=== PATIENT | female | born 1985 | race Caucasian/White ===

== ENCOUNTER → 2020-04-03 | Outpatient (CLI) | payer BC ==
[2020-04-03 09:42] LABS: Anisocytosis Slight; Basophils % (A) 0 %; Eosinophils # (A) 0.2 k/uL (0-0.7); Eosinophils % (A) 2 %; HCT 42.9 % (34.0-46.0); HGB 13.6 gm/dL (11.4-16.0); Lymphocytes # (A) 1.7 k/uL (1.0-4.8); Lymphocytes % (A) 17 %; MCH 30.1 pg (25.0-35.0); MCHC 31.6 g/dL (31.0-37.0); MCV 95.3 fL (80.0-100.0); Mean Platelet Volume 8.9; Monocytes # (A) 0.6 k/uL (0-1.0); Monocytes % (A) 6 %; Neutrophils # (A) 7.6 k/uL (1.3-7.7); Neutrophils % (A) 74 %; Platelet Count 338 k/uL (150-450); RBC 4.51 m/uL (3.80-5.40); RDW 16.3 % (11.5-15.5); WBC 10.2 k/uL (3.8-10.6)
[2020-04-03 15:18] LABS: % Iron Saturation 10.18 (12.00-45.00); Albumin 4.6 g/dL (3.80-4.90); Albumin/Globulin Ratio 1.84 (1.60-3.17); Anion Gap 3.8 mmol/L (4.00-12.00); BUN/Creat Ratio 14.29 Ratio (12.00-20.00); Calcium 9.5 mg/dL (8.7-10.3); Carbon Dioxide 30.2 mmol/L (21.6-31.8); Chol/HDL Ratio 4.58; Globulin 2.5 g/dL (1.6-3.3); LDL Cholesterol,Calculated 122.4 mg/dL (0.0-131.0); Magnesium 2.1 mg/dL (1.5-2.4); Total Bilirubin 0.4 mg/dL (0.3-1.2); Total Protein 7.1 g/dL (6.2-8.2); VLDL Calculation 20.6 mg/dL (5.00-40.00)
[2020-04-03 15:27] LABS: T4, Free (Free Thyroxine) 1.2 ng/dL (0.80-1.80)
[2020-04-03 15:29] LABS: Folate, Serum 6.5 ng/mL
[2020-04-03 16:57] LABS: Hemoglobin A1C 5.5 % (4.0-6.0)
== END | disposition home or self-care (01) ==
LOC: LABWHC1 08:22
PROVIDERS: ATTEND Nurse Practitioner Psychiatric/Mental Health
DX: F23 Brief psychotic disorder (principal); Z79.899 Other long term (current) drug therapy
CPT/HCPCS: 36415; 80053; 80061; 82306; 82607; 82746; 83036; 83540; 83550; 83735; 84439; 84443; 85025

== ENCOUNTER 2020-07-04 13:55 | Inpatient (IN) | payer OTHER ==
[2020-07-04] MEDS ORDERED: SODIUM CHLORIDE 0.9% 1,000 ML IV STA (14:19)
[2020-07-04] MEDS ORDERED: ONDANSETRON 4 MG/2 ML VIAL IVP STA (14:19)
[2020-07-04] MEDS ORDERED: METOCLOPRAMIDE 5 MG/ML 2 ML VIAL IVP STA (14:21)
--- NOTE | 2020-07-04 14:30 | ED ---
General Adult HPI - General Chief complaint: Nausea/Vomiting/Diarrhea Stated complaint: Vomiting Time Seen by Provider: 07/04/20 14:05 Source: patient, RN notes reviewed, old records reviewed Mode of arrival: ambulatory Limitations: no limitations - History of Present Illness Initial comments: 34-year-old female patient received a chief complaint of nausea vomiting mild cough starting last night. Patient reports that she essentially threw up throughout the night. Denies a chance of being . patient states she is having some very mild epigastric abdominal pain. Denies any other complaints. Systemic: Pt denies fatigue, rash. Pt denies weakness, night sweats, weight loss. Neuro: Pt denies headache, visual disturbances, syncope or pre-syncope. HEENT: Pt denies ocular discharge or irritation, otalgia, rhinorrhea, pharyngitis or notable lymphadenopathy. Cardiopulmonary: Pt denies chest pain, SOB, heart palpitations, dyspnea on exertion. : Pt denies dysuria, burning w/ urination, frequency/urgency. Denies new onset urinary or bowel incontinence. MSK: Pt denies myalgia, loss of strength or function in extremities. Neuro: Pt denies new onset weakness, paresthesias. - Related Data Home Medications Medication Instructions Recorded Confirmed Sertraline HCl [Zoloft] 100 mg PO DAILY 07/04/20 07/04/20 Allergies Allergy/AdvReac Type Severity Reaction Status Date / Time No Known Allergies Allergy Verified 07/04/20 17:31 Review of Systems ROS Statement: Those systems with pertinent positive or pertinent negative responses have been documented in the HPI. ROS Other: All systems not noted in ROS Statement are negative. Past Medical History Past Medical History: No Reported History History of Any Multi-Drug Resistant Organisms: None Reported Additional Past Surgical History / Comment(s): right foot Past Psychological History: Depression Smoking Status: Current every day smoker Past Alcohol Use History: None Reported Past Drug Use History: None Reported General Exam - General Exam Comments Initial Comments: Constitutional: NAD, AOX3, Pt has pleasant affect. HEENT: NC/AT, trachea midline, neck supple, no lymphadenopathy. Posterior pharynx non erythematous, without exudates. External ears appear normal, without discharge. Mucous membranes moist. Eyes PERRLA, EOM intact. There is no scleral icterus. No pallor noted. Cardiopulmonary: RRR, no murmurs, rubs or gallops, no JVD noted. Lungs CTAB in anterior and posterior nelson. No peripheral edema. Abdominal exam: Abdomen soft and non-distended. Abdomen mildly tender to palpation in epigastric region. Bowel sounds active in LLQ. No hepatosplenomegaly. No ecchymosis Neuro: CN II-XII grossly intact. No nuchal rigidity. No raccon eyes, no mcmillan sign, no hemotympanum. No cervical spinal tenderness. MSK: No posterior calf tenderness bilaterally, homans sign negative bilaterally. Posterior tibialis and radial pulse +2 bilaterally. Sensation intact in upper and lower extremities. Full active ROM in upper and lower extremities, 5/5 stregnth. Limitations: no limitations Course Vital Signs 07/04/20 07/04/20 14:01 17:22 Temperature 97.9 F 98.8 F Pulse Rate 105 H 90 Respiratory 20 16 Rate Blood Pressure 128/84 113/68 O2 Sat by Pulse 99 98 Oximetry Medical Decision Making - Medical Decision Making 34-year-old male female patient presents to ED for evaluation of nausea vomiting diarrhea abdominal pain and mild cough for the last 2 days or so. Patient does report that she ate some [place] 2 days ago however nobody else is sick and ate the same food. Patient has mild abdominal tenderness in the epigastric region. Laboratory investigations were performed which displayed acute kidney injury creatinine of 3, significant transaminitis in the 7000's. Patient denies any toxic ingestions. PT/INR was also found be elevated. Creatinine kinase with acceptable limits., Levels negative. CT abdomen and pelvis negative for acute process. Chest negative for acute process. Influenza negative. Pelvic test pending. Patient be admitted for further evaluation. Case was discussed with Dr. Jarrett who evaluated patient, admitted to Dr. Key. I did discuss case with GI doctor Austin who did reccomend cmv, ebv, hepatitis panel but no further interventions. - Lab Data Result diagrams: 07/04/20 14:19 07/04/20 14:19 Lab Results 07/04/20 07/04/20 07/04/20 Range/Units 14:19 14:19 14:19 WBC 18.8 H (3.8-10.6) k/uL RBC 4.73 (3.80-5.40) m/uL Hgb 13.8 (11.4-16.0) gm/dL Hct 43.5 (34.0-46.0) % MCV 92.1 (80.0-100.0) fL MCH 29.2 (25.0-35.0) pg MCHC 31.7 (31.0-37.0) g/dL RDW 15.6 H (11.5-15.5) % Plt Count 262 (150-450) k/uL Neutrophils % 91 % Lymphocytes % 6 % Monocytes % 2 % Eosinophils % 1 % Basophils % 0 % Neutrophils # 17.0 H (1.3-7.7) k/uL Lymphocytes # 1.2 (1.0-4.8) k/uL Monocytes # 0.3 (0-1.0) k/uL Eosinophils # 0.2 (0-0.7) k/uL Basophils # 0.0 (0-0.2) k/uL PT (9.0-12.0) sec INR (<1.2) APTT (22.0-30.0) sec Sodium 136 L (137-145) mmol/L Potassium 3.6 (3.5-5.1) mmol/L Chloride 104 (98-107) mmol/L Carbon Dioxide 20 L (22-30) mmol/L Anion Gap 12 mmol/L BUN 19 H (7-17) mg/dL Creatinine 3.28 H (0.52-1.04) mg/dL Est GFR (CKD-EPI)AfAm 20 (>60 ml/min/1.73 sqM) Est GFR (CKD-EPI)NonAf 18 (>60 ml/min/1.73 sqM) Glucose 128 H (74-99) mg/dL Osmolality (280-301) mosm/kg Lactic Ac Sepsis Rflx Plasma Lactic Acid Sukhjinder (0.7-2.0) mmol/L Calcium 8.6 (8.4-10.2) mg/dL Total Bilirubin 0.9 (0.2-1.3) mg/dL AST 7283 H (14-36) U/L ALT 7622 H (4-34) U/L Alkaline Phosphatase 140 H (38-126) U/L Creatine Kinase 107 (30-135) U/L Total Protein 6.4 (6.3-8.2) g/dL Albumin 3.6 (3.5-5.0) g/dL Lipase 228 (23-300) U/L Urine Color Urine Appearance (Clear) Urine pH (5.0-8.0) Ur Specific [place] (1.001-1.035) Urine Protein (Negative) Urine Glucose (UA) (Negative) Urine Ketones (Negative) Urine Blood (Negative) Urine Nitrite (Negative) Urine Bilirubin (Negative) Urine Urobilinogen (<2.0) mg/dL Ur Leukocyte Esterase (Negative) Urine RBC (0-5) /hpf Urine WBC (0-5) /hpf Ur Squamous Epith Cells (0-4) /hpf Amorphous Sediment (None) /hpf Urine Bacteria (None) /hpf Urine Mucus (None) /hpf Urine HCG, Qual (Not Detectd) Stool Occult Blood (Negative) Urine Opiates Screen (NotDetected) Ur Oxycodone Screen (NotDetected) Urine Methadone Screen (NotDetected) Ur Propoxyphene Screen (NotDetected) Acetaminophen ug/mL Ur Barbiturates Screen (NotDetected) U Tricyclic Antidepress (NotDetected) Ur Phencyclidine Scrn (NotDetected) Ur Amphetamines Screen (NotDetected) U Methamphetamines Scrn (NotDetected) U Benzodiazepines Scrn (NotDetected) Urine Cocaine Screen (NotDetected) U Marijuana (THC) Screen (NotDetected) Influenza Type A RNA (Not Detectd) Influenza Type B (PCR) (Not Detectd) 07/04/20 07/04/20 07/04/20 Range/Units 14:19 14:19 14:20 WBC (3.8-10.6) k/uL RBC (3.80-5.40) m/uL Hgb (11.4-16.0) gm/dL Hct (34.0-46.0) % MCV (80.0-100.0) fL MCH (25.0-35.0) pg MCHC (31.0-37.0) g/dL RDW (11.5-15.5) % Plt Count (150-450) k/uL Neutrophils % % Lymphocytes % % Monocytes % % Eosinophils % % Basophils % % Neutrophils # (1.3-7.7) k/uL Lymphocytes # (1.0-4.8) k/uL Monocytes # (0-1.0) k/uL Eosinophils # (0-0.7) k/uL Basophils # (0-0.2) k/uL PT (9.0-12.0) sec INR (<1.2) APTT (22.0-30.0) sec Sodium (137-145) mmol/L Potassium (3.5-5.1) mmol/L Chloride (98-107) mmol/L Carbon Dioxide (22-30) mmol/L Anion Gap mmol/L BUN (7-17) mg/dL Creatinine (0.52-1.04) mg/dL Est GFR (CKD-EPI)AfAm (>60 ml/min/1.73 sqM) Est GFR (CKD-EPI)NonAf (>60 ml/min/1.73 sqM) Glucose (74-99) mg/dL Osmolality 290 (280-301) mosm/kg Lactic Ac Sepsis Rflx Plasma Lactic Acid Sukhjinder (0.7-2.0) mmol/L Calcium (8.4-10.2) mg/dL Total Bilirubin (0.2-1.3) mg/dL AST (14-36) U/L ALT (4-34) U/L Alkaline Phosphatase (38-126) U/L Creatine Kinase (30-135) U/L Total Protein (6.3-8.2) g/dL Albumin (3.5-5.0) g/dL Lipase (23-300) U/L Urine Color Dark Brown Urine Appearance Turbid H (Clear) Urine pH 5.5 (5.0-8.0) Ur Specific [place] 1.023 (1.001-1.035) Urine Protein 2+ H (Negative) Urine Glucose (UA) Trace H (Negative) Urine Ketones Negative (Negative) Urine Blood Small H (Negative) Urine Nitrite Negative (Negative) Urine Bilirubin Negative (Negative) Urine Urobilinogen <2.0 (<2.0) mg/dL Ur Leukocyte Esterase Negative (Negative) Urine RBC 2 (0-5) /hpf Urine WBC 10 H (0-5) /hpf Ur Squamous Epith Cells 2 (0-4) /hpf Amorphous Sediment Rare H (None) /hpf Urine Bacteria Rare H (None) /hpf Urine Mucus Rare H (None) /hpf Urine HCG, Qual (Not Detectd) Stool Occult Blood (Negative) Urine Opiates Screen (NotDetected) Ur Oxycodone Screen (NotDetected) Urine Methadone Screen (NotDetected) Ur Propoxyphene Screen (NotDetected) Acetaminophen <10.0 ug/mL Ur Barbiturates Screen (NotDetected) U Tricyclic Antidepress (NotDetected) Ur Phencyclidine Scrn (NotDetected) Ur Amphetamines Screen (NotDetected) U Methamphetamines Scrn (NotDetected) U Benzodiazepines Scrn (NotDetected) Urine Cocaine Screen (NotDetected) U Marijuana (THC) Screen (NotDetected) Influenza Type A RNA (Not Detectd) Influenza Type B (PCR) (Not Detectd) 07/04/20 07/04/20 07/04/20 Range/Units 14:20 14:20 14:37 WBC (3.8-10.6) k/uL RBC (3.80-5.40) m/uL Hgb (11.4-16.0) gm/dL Hct (34.0-46.0) % MCV (80.0-100.0) fL MCH (25.0-35.0) pg MCHC (31.0-37.0) g/dL RDW (11.5-15.5) % Plt Count (150-450) k/uL Neutrophils % % Lymphocytes % % Monocytes % % Eosinophils % % Basophils % % Neutrophils # (1.3-7.7) k/uL Lymphocytes # (1.0-4.8) k/uL Monocytes # (0-1.0) k/uL Eosinophils # (0-0.7) k/uL Basophils # (0-0.2) k/uL PT (9.0-12.0) sec INR (<1.2) APTT (22.0-30.0) sec Sodium (137-145) mmol/L Potassium (3.5-5.1) mmol/L Chloride (98-107) mmol/L Carbon Dioxide (22-30) mmol/L Anion Gap mmol/L BUN (7-17) mg/dL Creatinine (0.52-1.04) mg/dL Est GFR (CKD-EPI)AfAm (>60 ml/min/1.73 sqM) Est GFR (CKD-EPI)NonAf (>60 ml/min/1.73 sqM) Glucose (74-99) mg/dL Osmolality (280-301) mosm/kg Lactic Ac Sepsis Rflx Plasma Lactic Acid Sukhjinder 4.5 H* (0.7-2.0) mmol/L Calcium (8.4-10.2) mg/dL Total Bilirubin (0.2-1.3) mg/dL AST (14-36) U/L ALT (4-34) U/L Alkaline Phosphatase (38-126) U/L Creatine Kinase (30-135) U/L Total Protein (6.3-8.2) g/dL Albumin (3.5-5.0) g/dL Lipase (23-300) U/L Urine Color Urine Appearance (Clear) Urine pH (5.0-8.0) Ur Specific [place] (1.001-1.035) Urine Protein (Negative) Urine Glucose (UA) (Negative) Urine Ketones (Negative) Urine Blood (Negative) Urine Nitrite (Negative) Urine Bilirubin (Negative) Urine Urobilinogen (<2.0) mg/dL Ur Leukocyte Esterase (Negative) Urine RBC (0-5) /hpf Urine WBC (0-5) /hpf Ur Squamous Epith Cells (0-4) /hpf Amorphous Sediment (None) /hpf Urine Bacteria (None) /hpf Urine Mucus (None) /hpf Urine HCG, Qual Not Detected (Not Detectd) Stool Occult Blood (Negative) Urine Opiates Screen Not Detected (NotDetected) Ur Oxycodone Screen Not Detected (NotDetected) Urine Methadone Screen Not Detected (NotDetected) Ur Propoxyphene Screen Not Detected (NotDetected) Acetaminophen ug/mL Ur Barbiturates Screen Not Detected (NotDetected) U Tricyclic Antidepress Not Detected (NotDetected) Ur Phencyclidine Scrn Not Detected (NotDetected) Ur Amphetamines Screen Not Detected (NotDetected) U Methamphetamines Scrn Not Detected (NotDetected) U Benzodiazepines Scrn Not Detected (NotDetected) Urine Cocaine Screen Not Detected (NotDetected) U Marijuana (THC) Screen Not Detected (NotDetected) Influenza Type A RNA (Not Detectd) Influenza Type B (PCR) (Not Detectd) 10/03/20 10/03/20 10/03/20 Range/Units 15:13 16:29 16:30 WBC (3.8-10.6) k/uL RBC (3.80-5.40) m/uL Hgb (11.4-16.0) gm/dL Hct (34.0-46.0) % MCV (80.0-100.0) fL MCH (25.0-35.0) pg MCHC (31.0-37.0) g/dL RDW (11.5-15.5) % Plt Count (150-450) k/uL Neutrophils % % Lymphocytes % % Monocytes % % Eosinophils % % Basophils % % Neutrophils # (1.3-7.7) k/uL Lymphocytes # (1.0-4.8) k/uL Monocytes # (0-1.0) k/uL Eosinophils # (0-0.7) k/uL Basophils # (0-0.2) k/uL PT 13.8 H (9.0-12.0) sec INR 1.4 H (<1.2) APTT 21.1 L (22.0-30.0) sec Sodium (137-145) mmol/L Potassium (3.5-5.1) mmol/L Chloride (98-107) mmol/L Carbon Dioxide (22-30) mmol/L Anion Gap mmol/L BUN (7-17) mg/dL Creatinine (0.52-1.04) mg/dL Est GFR (CKD-EPI)AfAm (>60 ml/min/1.73 sqM) Est GFR (CKD-EPI)NonAf (>60 ml/min/1.73 sqM) Glucose (74-99) mg/dL Osmolality (280-301) mosm/kg Lactic Ac Sepsis Rflx Y Plasma Lactic Acid Sukhjinder (0.7-2.0) mmol/L Calcium (8.4-10.2) mg/dL Total Bilirubin (0.2-1.3) mg/dL AST (14-36) U/L ALT (4-34) U/L Alkaline Phosphatase (38-126) U/L Creatine Kinase (30-135) U/L Total Protein (6.3-8.2) g/dL Albumin (3.5-5.0) g/dL Lipase (23-300) U/L Urine Color Urine Appearance (Clear) Urine pH (5.0-8.0) Ur Specific [place] (1.001-1.035) Urine Protein (Negative) Urine Glucose (UA) (Negative) Urine Ketones (Negative) Urine Blood (Negative) Urine Nitrite (Negative) Urine Bilirubin (Negative) Urine Urobilinogen (<2.0) mg/dL Ur Leukocyte Esterase (Negative) Urine RBC (0-5) /hpf Urine WBC (0-5) /hpf Ur Squamous Epith Cells (0-4) /hpf Amorphous Sediment (None) /hpf Urine Bacteria (None) /hpf Urine Mucus (None) /hpf Urine HCG, Qual (Not Detectd) Stool Occult Blood Negative (Negative) Urine Opiates Screen (NotDetected) Ur Oxycodone Screen (NotDetected) Urine Methadone Screen (NotDetected) Ur Propoxyphene Screen (NotDetected) Acetaminophen ug/mL Ur Barbiturates Screen (NotDetected) U Tricyclic Antidepress (NotDetected) Ur Phencyclidine Scrn (NotDetected) Ur Amphetamines Screen (NotDetected) U Methamphetamines Scrn (NotDetected) U Benzodiazepines Scrn (NotDetected) Urine Cocaine Screen (NotDetected) U Marijuana (THC) Screen (NotDetected) Influenza Type A RNA (Not Detectd) Influenza Type B (PCR) (Not Detectd) 07/04/20 Range/Units 16:31 WBC (3.8-10.6) k/uL RBC (3.80-5.40) m/uL Hgb (11.4-16.0) gm/dL Hct (34.0-46.0) % MCV (80.0-100.0) fL MCH (25.0-35.0) pg MCHC (31.0-37.0) g/dL RDW (11.5-15.5) % Plt Count (150-450) k/uL Neutrophils % % Lymphocytes % % Monocytes % % Eosinophils % % Basophils % % Neutrophils # (1.3-7.7) k/uL Lymphocytes # (1.0-4.8) k/uL Monocytes # (0-1.0) k/uL Eosinophils # (0-0.7) k/uL Basophils # (0-0.2) k/uL PT (9.0-12.0) sec INR (<1.2) APTT (22.0-30.0) sec Sodium (137-145) mmol/L Potassium (3.5-5.1) mmol/L Chloride (98-107) mmol/L Carbon Dioxide (22-30) mmol/L Anion Gap mmol/L BUN (7-17) mg/dL Creatinine (0.52-1.04) mg/dL Est GFR (CKD-EPI)AfAm (>60 ml/min/1.73 sqM) Est GFR (CKD-EPI)NonAf (>60 ml/min/1.73 sqM) Glucose (74-99) mg/dL Osmolality (280-301) mosm/kg Lactic Ac Sepsis Rflx Plasma Lactic Acid Sukhjinder (0.7-2.0) mmol/L Calcium (8.4-10.2) mg/dL Total Bilirubin (0.2-1.3) mg/dL AST (14-36) U/L ALT (4-34) U/L Alkaline Phosphatase (38-126) U/L Creatine Kinase (30-135) U/L Total Protein (6.3-8.2) g/dL Albumin (3.5-5.0) g/dL Lipase (23-300) U/L Urine Color Urine Appearance (Clear) Urine pH (5.0-8.0) Ur Specific [place] (1.001-1.035) Urine Protein (Negative) Urine Glucose (UA) (Negative) Urine Ketones (Negative) Urine Blood (Negative) Urine Nitrite (Negative) Urine Bilirubin (Negative) Urine Urobilinogen (<2.0) mg/dL Ur Leukocyte Esterase (Negative) Urine RBC (0-5) /hpf Urine WBC (0-5) /hpf Ur Squamous Epith Cells (0-4) /hpf Amorphous Sediment (None) /hpf Urine Bacteria (None) /hpf Urine Mucus (None) /hpf Urine HCG, Qual (Not Detectd) Stool Occult Blood (Negative) Urine Opiates Screen (NotDetected) Ur Oxycodone Screen (NotDetected) Urine Methadone Screen (NotDetected) Ur Propoxyphene Screen (NotDetected) Acetaminophen ug/mL Ur Barbiturates Screen (NotDetected) U Tricyclic Antidepress (NotDetected) Ur Phencyclidine Scrn (NotDetected) Ur Amphetamines Screen (NotDetected) U Methamphetamines Scrn (NotDetected) U Benzodiazepines Scrn (NotDetected) Urine Cocaine Screen (NotDetected) U Marijuana (THC) Screen (NotDetected) Influenza Type A RNA Not Detected (Not Detectd) Influenza Type B (PCR) Not Detected (Not Detectd) Disposition Clinical Impression: Elevated liver enzymes, Acute kidney injury, Nausea and vomiting, Abdominal pain Disposition: ADMITTED IP TO THIS HOSP Condition: Serious Is patient prescribed a controlled substance at d/c from ED?: No
[2020-07-04 14:53] LABS: Basophils % (A) 0 %; Eosinophils # (A) 0.2 k/uL (0-0.7); Eosinophils % (A) 1 %; HCT 43.5 % (34.0-46.0); HGB 13.8 gm/dL (11.4-16.0); Lymphocytes # (A) 1.2 k/uL (1.0-4.8); Lymphocytes % (A) 6 %; MCH 29.2 pg (25.0-35.0); MCHC 31.7 g/dL (31.0-37.0); MCV 92.1 fL (80.0-100.0); Mean Platelet Volume 9.2; Monocytes # (A) 0.3 k/uL (0-1.0); Monocytes % (A) 2 %; Neutrophils % (A) 91 %; Platelet Count 262 k/uL (150-450); RBC 4.73 m/uL (3.80-5.40); RDW 15.6 % (11.5-15.5); WBC 18.8 k/uL (3.8-10.6)
[2020-07-04 15:02] LABS: Albumin 3.6 g/dL (3.5-5.0); Calcium 8.6 mg/dL (8.4-10.2); Potassium 3.6 mmol/L (3.5-5.1); Total Bilirubin 0.9 mg/dL (0.2-1.3); Total Protein 6.4 g/dL (6.3-8.2)
[2020-07-04] MEDS ORDERED: SODIUM CHLORIDE 0.9% 1,000 ML IV ONE (15:16)
[2020-07-04 15:33] LABS: Amorphous Sediment,Urine Rare /hpf; Appearance,Urine Turbid (Clear); Bacteria,Urine Rare /hpf; Bilirubin,Urine Negative (Negative); Blood,Urine Small (Negative); Color,Urine Dark Brown; Glucose,Urine (UA) Trace (Negative); Ketones,Urine Negative (Negative); Leukocyte Esterase,Urine Negative (Negative); Mucus,Urine Rare /hpf; Nitrite,Urine Negative (Negative); PH, Urine 5.5 (5.0-8.0); Protein,Urine 2+ (Negative); RBC,Urine 2 /hpf (0-5); Specific Gravity,Urine 1.023 (1.001-1.035); Squamous Epithelial Cell,Urine 2 /hpf (0-4); Urobilinogen,Urine <2.0 mg/dL (<2.0); WBC,Urine 10 /hpf (0-5)
--- NOTE | 2020-07-04 15:39 | XR ---
EXAMINATION TYPE: XR chest 2V DATE OF EXAM: 07/04/2020 COMPARISON: NONE HISTORY: Abdominal pain TECHNIQUE: 2 views FINDINGS: Heart and mediastinum are normal. Lungs are clear. Diaphragm is normal. Bony thorax appears normal. IMPRESSION: Normal chest
--- NOTE | 2020-07-04 15:48 | CT ---
EXAMINATION TYPE: CT abdomen pelvis wo con DATE OF EXAM: 07/04/2020 COMPARISON: None HISTORY: Abdominal pain, vomiting. CT DLP: 1110.4 mGycm Automated exposure control for dose reduction was used. Images obtained from the diaphragm to the floor the pelvis with no contrast. Lung bases are clear. There is no pleural effusion. Heart size is normal. There is mild fatty infiltration of the liver. Spleen is intact. There is no pancreatic mass. Gallbla dder appears normal. The stomach is intact. There is no evidence of pancreatic mass. Exam limited sli ghtly by motion. There is no adrenal mass. Kidneys have normal size. There is no hydronephrosis. There is no retroperi toneal adenopathy. Ureters are not dilated. Bladder distends smoothly. Uterus is anteverted. There is no inguinal hernia. There is small amount of free fluid in the pelvis. There is no evidence of a pel teagan mass. There is no mesenteric edema. There is no ascites or free air. Appendix is posterior and appears norm al. There is no bowel obstruction. Lumbar vertebra have normal spacing and alignment. Posterior elements are intact. There is no vee veronika fracture. The bony pelvis is intact. Hip joints are intact. IMPRESSION: Small amount of free fluid in the cul-de-sac could be physiologic. Normal appendix.
[2020-07-04] MEDS ORDERED: PIPERACILLIN-TAZOBACTAM 3.375 GM in SODIUM CHLORIDE 0.9% 100 ML IVPB STA (16:36)
[2020-07-04] MEDS ORDERED: ONDANSETRON 4 MG/2 ML VIAL IVP PRN ×2 (16:48→16:55)
[2020-07-04] MEDS ORDERED: NALOXONE 0.4 MG/ML 1 ML VIAL IV PRN (16:48)
[2020-07-04 17:10] LABS: INR 1.4 (<1.2); Prothrombin Time 13.8 sec (9.0-12.0)
[2020-07-04 17:17] LABS: Partial Thromboplastin Time 21.1 sec (22.0-30.0)
[2020-07-04] MEDS: SODIUM CHLORIDE 0.9% 1,000 ML IV SCH (17:39)
[2020-07-04 17:50] LABS: Amphetamine Screen,Urine Not Detected (NotDetected); Barbiturate Screen,Urine Not Detected (NotDetected); Benzodiazepines Screen,Urine Not Detected (NotDetected); Cocaine Screen,Urine Not Detected (NotDetected); Methadone Screen, Urine Not Detected (NotDetected); Opiate Screen,Urine Not Detected (NotDetected); Oxycodone Screen, Urine Not Detected (NotDetected); Phencyclidine Screen,Urine Not Detected (NotDetected); Tricyclic Antidepressant,Urine Not Detected (NotDetected); Urn Cannabinoid Scrn Not Detected (NotDetected)
[2020-07-04 23:10] LABS: Hepatitis A Antibody IgM Non-Reactive (Non-Reactive); Hepatitis B Core IgM Non-Reactive (Non-Reactive); Hepatitis B Surface Antigen Non-Reactive (Non-Reactive); Hepatitis C IgG Antibody Non-Reactive (Non-Reactive)
[2020-07-05] MEDS: SODIUM CHLORIDE 0.9% 1,000 ML IV SCH ×3 (04:53→19:56)
[2020-07-05 06:37] LABS: HCT 33.4 % (34.0-46.0); HGB 11.2 gm/dL (11.4-16.0); MCH 30.6 pg (25.0-35.0); MCHC 33.5 g/dL (31.0-37.0); MCV 91.5 fL (80.0-100.0); Mean Platelet Volume 8.9; Platelet Count 213 k/uL (150-450); RBC 3.65 m/uL (3.80-5.40); RDW 15.6 % (11.5-15.5); WBC 12.5 k/uL (3.8-10.6)
[2020-07-05 06:46] LABS: African American GFR (CKD) 17 (>60 ml/min/1.73 sqM); Albumin 2.7 g/dL (3.5-5.0); Albumin/Globulin Ratio 1.1; Alkaline Phosphatase 117 U/L (38-126); Anion Gap 3 mmol/L; Blood Urea Nitrogen 21 mg/dL (7-17); Calcium 7.7 mg/dL (8.4-10.2); Carbon Dioxide 21 mmol/L (22-30); Chloride 111 mmol/L (98-107); Globulin 2.5 g/dL; Glucose 96 mg/dL (74-99); Non-African American GFR(CKD) 15 (>60 ml/min/1.73 sqM); Potassium 3.1 mmol/L (3.5-5.1); Sodium 135 mmol/L (137-145); Total Bilirubin 0.9 mg/dL (0.2-1.3); Total Protein 5.2 g/dL (6.3-8.2)
[2020-07-05 07:07] LABS: AST 2076 U/L (14-36)
[2020-07-05 07:09] LABS: ALT 4354 U/L (4-34)
[2020-07-05] MEDS ORDERED: POTASSIUM CHLORIDE 20 MEQ in WATER FOR INJECTION 1 100ML.BAG IVPB SCH (09:00)
--- NOTE | 2020-07-05 09:02 | US ---
EXAMINATION TYPE: US renals and bladder DATE OF EXAM: 07/05/2020 COMPARISON: None CLINICAL HISTORY: vomiting. abn labs EXAM MEASUREMENTS: Right Kidney: 11.7 x 6.2 x 5.7 cm Left Kidney: 11.4 x 5.3 x 5.9 cm Right Kidney: No hydronephrosis or masses seen Left Kidney: No hydronephrosis or masses seen Bladder: mildly distended, anechoic Bilateral Jets not seen IMPRESSION: 1. Normal renal ultrasound
--- NOTE | 2020-07-05 09:50 | P.HPIM ---
History of Present Illness H&P Date: 07/05/20 History of present illness This is a 34-year-old patient who presented to the emergency room complaining of nausea vomiting and diarrhea since . Patient states that she threw up throughout the night and had multiple episodes of diarrhea. Patient is having mild epigastric pain. Patient states that she had [place] the night before however nobody else was sick. She denies any recent travel. She has not been around any animals and/or pets. Patient denies any deep cleaning or exposure to any chemicals. She denies any blood in her urine or kidney stones. Patient was seen on by her psychologist for a routine monthly visit to manage her depression. At that time patient was found to be afebrile however she was vomiting and was instructed to see her primary care physician. Patient was [facility] however with continued episodes of vomiting she in turn came to the emergency room. Patient denies any ingestion of Tylenol. patient states that she did take Pepto-Bismol because of abdominal discomfort and vomiting. CT of the abdomen shows a small amount of free fluid in the cul-de-sac. At this time patient is found resting in bed in no acute distress. Patient states that she has not had any episodes of vomiting or diarrhea since she was admitted. Patient continues have slight epigastric pain. Patient denies any petechiae or bruising to mouth or extremities. Patient states that she has not been around anyone who has been sick. Patient states that she has no chance of being . Patient remained afebrile. Pulse rate 72, respirations 16, blood pressure 104/53 pulse ox a 93% on room air. WC 12.5, hemoglobin 11.2, sodium 135, potassium 3.9, B UN 21, creatinine 3.83, INR 1.4, lactate acid 2.0, AST 2076, ALC 4354. Covid testing pending, influenza A and B-, hepatitis screening negative CMV negative. Awaiting Aletha-Rasmussen virus Review Of Systems: Constitutional: No fever, no chills, no night sweats. No weight change. No weakness, fatigue or lethargy. No daytime sleepiness. EENT: No headache. No blurred vision or double vision, no loss of vision. No loss of Hearing, no ringing in the ears, no dizziness. No nasal drainage or congestion. No epistaxis. No sore throat. Lungs: No shortness of breath, cough, no sputum production. No wheezing. Cardiovascular: No chest pain, no lower extremity edema. No palpitations. No paroxysmal nocturnal dyspnea. No orthopnea. No lightheadedness or dizziness. No syncopal episodes. Abdominal: Reports abdominal discomfort. Reports nausea and vomiting. no diarrhea. Report constipation. No bloody or tarry stools. no loss of appetite. Genitourinary: No dysuria, increased frequency, urgency. No urinary retention. Musculoskeletal: No myalgias. No muscle weakness, no gait dysfunction, no frequent falls. No back pain. No neck pain. Integumentary: No wounds, no lesions. No rash or pruritus. No unusual bruising. No change in hair or nails. Neurologic: No aphasia. No facial droop. No change in mentation. No head injury. No headache. No paralysis. No paresthesia. Psychiatric: Reports depression managed. No anxiety. No mood swings. Endocrine: No abnormal blood sugars. No weight change. No excessive sweating or thirst. 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 Does not utilize any Coumadin at home such as CPAP machine Family history: Patient is single with no children. patient has 6 siblings: One sister with unknown cancer, brother with schizophrenia, brother with diabetes, mother and father with diabetes, father history of permanent pacemaker Physical examination General Appearance: Alert, cooperative, no distress, appears stated age. Neck HEENT: Supple, no lymphadenopathy, no thyroid enlargement, no carotid bruits. Lungs: Clear to auscultation without crackles or wheezes no rhonchi, no deformity. Chest Wall: Chest wall normal expansion with deep inspiration no tenderness and no deformity was found on exam, no costochondral pain or discomfort. Heart: Regular rate and rhythm, S1, S2 normal, no murmur, rub or gallop. Back: Symmetric, no curvature, ROM normal, no CVA tenderness. Abdomen: Soft, non-tender, no rebound or rigidity, no hepatosplenomegaly. Extremities: Extremities normal, atraumatic, no cyanosis or edema. Pulses: 2+ and symmetric. Skin: Skin color, texture, tugor normal, no rashes or lesions. Neurologic: Alert oriented x3 cranial nerves II through XII intact, no motor deficit, no abnormal balance or gait Assessment and plan 1. Acute kidney failure etiology unknown possible infectious process of atypical virus such as E. coli, renal tubular necrosis. CT of abdomen and pelvis as noted above, pelvic labs pending, consult gastroenterology and nephrology. Renal ultrasound ordered Stool culture and stool ova ordered. Strict I&O. Repeat PT/INR tomorrow. One dose of Zosyn given. 2. Acute liver injury with elevated liver enzymes. History of Zoloft use for prolonged period unlikely cause of elevated liver enzymes. More likely related to an infectious process. As noted above 3. Diarrhea with nausea vomiting abdominal pain. Continue hydration. May advance diet to full liquid 4. Hypokalemia. Potassium replacement potassium chloride 60 mEq 1 5. Depression. Continue Zoloft unlikely cause of elevated liver enzymes 6. Nicotine dependence 7. GI prophylaxis. Protonix 40 mg IV push 8. DVT prophylaxis. Early ambulation CODE STATUS: Full code Discharge plan: Admit to the hospital for minimum 2 nights day Impression and plan of care have been directed as dictated by the signing physician. Pavithra Dominguez nurse practitioner acting as scribe for signing physician. Past Medical History Past Medical History: No Reported History History of Any Multi-Drug Resistant Organisms: None Reported Additional Past Surgical History / Comment(s): right foot Past Anesthesia/Blood Transfusion Reactions: No Reported Reaction Past Psychological History: Depression Smoking Status: Current every day smoker Past Alcohol Use History: None Reported Past Drug Use History: None Reported Medications and Allergies Home Medications Medication Instructions Recorded Confirmed Type Sertraline HCl [Zoloft] 100 mg PO DAILY 07/04/20 07/04/20 History Allergies Allergy/AdvReac Type Severity Reaction Status Date / Time No Known Allergies Allergy Verified 07/04/20 17:31 Physical Exam Vitals: Vital Signs Temp Pulse Pulse Resp BP BP Pulse Ox 07/05/20 07:56 97.8 F 72 16 104/53 93 L 07/05/20 01:00 98.2 F 90 18 108/67 98 07/04/20 19:00 98.6 F 86 16 119/72 99 07/04/20 18:14 98.8 F 88 18 132/66 98 07/04/20 18:13 88 18 132/66 98 07/04/20 17:22 98.8 F 90 16 113/68 98 07/04/20 14:01 97.9 F 105 H 20 128/84 99 Intake and Output 07/04/20 07/05/20 07/05/20 22:59 06:59 14:59 Other: Voiding Method Toilet Toilet # Voids 1 1 Weight 102.058 kg Results CBC & Chem 7: 07/05/20 06:09 07/05/20 06:09 Labs: Abnormal Lab Results - Last 24 Hours (Table) 07/04/20 07/04/20 07/04/20 Range/Units 14:19 14:19 14:20 WBC 18.8 H (3.8-10.6) k/uL RBC (3.80-5.40) m/uL Hgb (11.4-16.0) gm/dL Hct (34.0-46.0) % RDW 15.6 H (11.5-15.5) % Neutrophils # 17.0 H (1.3-7.7) k/uL PT (9.0-12.0) sec INR (<1.2) APTT (22.0-30.0) sec Sodium 136 L (137-145) mmol/L Potassium (3.5-5.1) mmol/L Chloride (98-107) mmol/L Carbon Dioxide 20 L (22-30) mmol/L BUN 19 H (7-17) mg/dL Creatinine 3.28 H (0.52-1.04) mg/dL Glucose 128 H (74-99) mg/dL Plasma Lactic Acid Sukhjinder (0.7-2.0) mmol/L Calcium (8.4-10.2) mg/dL AST 7283 H (14-36) U/L ALT 7622 H (4-34) U/L Alkaline Phosphatase 140 H (38-126) U/L Total Protein (6.3-8.2) g/dL Albumin (3.5-5.0) g/dL Urine Appearance Turbid H (Clear) Urine Protein 2+ H (Negative) Urine Glucose (UA) Trace H (Negative) Urine Blood Small H (Negative) Urine WBC 10 H (0-5) /hpf Amorphous Sediment Rare H (None) /hpf Urine Bacteria Rare H (None) /hpf Urine Mucus Rare H (None) /hpf 07/04/20 07/04/20 07/05/20 Range/Units 14:37 16:30 06:09 WBC 12.5 H (3.8-10.6) k/uL RBC 3.65 L (3.80-5.40) m/uL Hgb 11.2 L (11.4-16.0) gm/dL Hct 33.4 L (34.0-46.0) % RDW 15.6 H (11.5-15.5) % Neutrophils # (1.3-7.7) k/uL PT 13.8 H (9.0-12.0) sec INR 1.4 H (<1.2) APTT 21.1 L (22.0-30.0) sec Sodium (137-145) mmol/L Potassium (3.5-5.1) mmol/L Chloride (98-107) mmol/L Carbon Dioxide (22-30) mmol/L BUN (7-17) mg/dL Creatinine (0.52-1.04) mg/dL Glucose (74-99) mg/dL Plasma Lactic Acid Sukhjinder 4.5 H* (0.7-2.0) mmol/L Calcium (8.4-10.2) mg/dL AST (14-36) U/L ALT (4-34) U/L Alkaline Phosphatase (38-126) U/L Total Protein (6.3-8.2) g/dL Albumin (3.5-5.0) g/dL Urine Appearance (Clear) Urine Protein (Negative) Urine Glucose (UA) (Negative) Urine Blood (Negative) Urine WBC (0-5) /hpf Amorphous Sediment (None) /hpf Urine Bacteria (None) /hpf Urine Mucus (None) /hpf 07/05/20 Range/Units 06:09 WBC (3.8-10.6) k/uL RBC (3.80-5.40) m/uL Hgb (11.4-16.0) gm/dL Hct (34.0-46.0) % RDW (11.5-15.5) % Neutrophils # (1.3-7.7) k/uL PT (9.0-12.0) sec INR (<1.2) APTT (22.0-30.0) sec Sodium 135 L (137-145) mmol/L Potassium 3.1 L (3.5-5.1) mmol/L Chloride 111 H (98-107) mmol/L Carbon Dioxide 21 L (22-30) mmol/L BUN 21 H (7-17) mg/dL Creatinine 3.83 H (0.52-1.04) mg/dL Glucose (74-99) mg/dL Plasma Lactic Acid Sukhjinder (0.7-2.0) mmol/L Calcium 7.7 L (8.4-10.2) mg/dL AST 2076 H (14-36) U/L ALT 4354 H (4-34) U/L Alkaline Phosphatase (38-126) U/L Total Protein 5.2 L (6.3-8.2) g/dL Albumin 2.7 L (3.5-5.0) g/dL Urine Appearance (Clear) Urine Protein (Negative) Urine Glucose (UA) (Negative) Urine Blood (Negative) Urine WBC (0-5) /hpf Amorphous Sediment (None) /hpf Urine Bacteria (None) /hpf Urine Mucus (None) /hpf Thrombosis Risk Factor Assmnt - Choose All That Apply Each Factor Represents 1 point: Obesity (BMI >25) Thrombosis Risk Factor Assessment Total Risk Factor Score: 1 Thrombosis Risk Factor Assessment Level: Low Risk
[2020-07-05] MEDS ORDERED: POTASSIUM CHLORIDE ER 10 MEQ TAB.ER.PRT PO STA (10:23)
[2020-07-05] MEDS: SERTRALINE 100 MG TAB PO SCH (10:59)
[2020-07-05] MEDS: PANTOPRAZOLE 40 MG/10 ML VIAL IVP SCH (10:59)
--- NOTE | 2020-07-05 11:04 | P.NPCON ---
History of Present Illness - Reason for Consult acute renal failure - History of Present Illness reason for consultation: Acute kidney injury History of present illness: Patient is a 34-year-old female seen in renal consultation for acute kidney injury. Creatinine was 3.28 on admission and is 3.83 today. She is maintained on IV fluids with normal saline running at 100 mL an hour. Unknown as to what h er baseline renal function is. Patient denies any personal or family history of kidney disease. Denies chest pain or shortness of breath. No edema. Has been voiding. No hematuria or dysuria. patient presented to the hospital with acute onset of nausea and vomiting that began night. Patient's AST and ALT were noted to be above 7000 on admission and are now trending down. hepatitis an d CMV panel negative. she denies history of drug abuse or alcohol abuse. denies regular use of nonsteroidals. no hydronephrosis noted on CT of the abdomen. renal ultrasound revealed normal sized kidneys without any evidence of hydronephrosis. She did have abdominal discomfort which is now better. blood pressure stable. No significant hypotension noted. Denies fever or chills. Vital signs are stable. General: The patient appeared well nourished and normally developed. HEENT: Head exam is unremarkable. Neck is without jugular venous distension. LUNGS: Lungs are clear to auscultation and percussion. Breath sounds decreased. HEART: Rate and Rhythm are regular. ABDOMEN: soft, nontender. EXTREMITITES: No clubbing, cyanosis, or edema. Past Medical History Past Medical History: No Reported History History of Any Multi-Drug Resistant Organisms: None Reported Additional Past Surgical History / Comment(s): right foot Past Anesthesia/Blood Transfusion Reactions: No Reported Reaction Past Psychological History: Depression Smoking Status: Current every day smoker Past Alcohol Use History: None Reported Past Drug Use History: None Reported Medications and Allergies Home Medications Medication Instructions Recorded Confirmed Type Sertraline HCl [Zoloft] 100 mg PO DAILY 07/04/20 07/04/20 History Allergies Allergy/AdvReac Type Severity Reaction Status Date / Time No Known Allergies Allergy Verified 07/04/20 17:31 Physical Exam Vitals: Vital Signs Temp Pulse Pulse Resp BP BP Pulse Ox 07/05/20 07:56 97.8 F 72 16 104/53 93 L 07/05/20 01:00 98.2 F 90 18 108/67 98 07/04/20 19:00 98.6 F 86 16 119/72 99 07/04/20 18:14 98.8 F 88 18 132/66 98 07/04/20 18:13 88 18 132/66 98 07/04/20 17:22 98.8 F 90 16 113/68 98 07/04/20 14:01 97.9 F 105 H 20 128/84 99 Intake and Output 07/04/20 07/05/20 07/05/20 22:59 06:59 14:59 Output Total 351 Balance -351 Output: Urine 300 Post Void Residual 51 Other: Voiding Method Toilet Toilet # Voids 1 1 Weight 102.058 kg Results - Lab Results Most recent lab results Calcium 7.7 mg/dL (8.4-10.2) L 07/05/20 06:09 Magnesium 2.0 mg/dL (1.6-2.3) 07/05/20 06:09 07/05/20 06:09 07/05/20 06:09 Assessment and Plan Plan: assessment: 1. Acute kidney injury secondary to ATN secondary to severe intravascular volume depletion from vomiting. Creatinine 3.28 on admission and is 3.83 today. Unknown baseline renal function. No evidence of hydronephrosis noted on imaging. 2. Transaminitis possibly due to hypoperfusion. GI following. 3. Proteinuria. Rule out chlamydia nephritis. 4. Metabolic acidosis secondary to acute kidney injury and lactic acidosis. 5. Hypokalemia from poor intake. Magnesium normal. Plan: Maintain normal saline at 100 cc an hour. Replace potassium. 60 mg once today. Quantify proteinuria. Check serologies. Check bladder scan. To insert Ascencio catheter if greater than 300 mL present. Strict I's and O's. Repeat electrolytes in the morning. Thank you for the consultation. I will continue to follow the patient with you during her hospital stay.
--- NOTE | 2020-07-05 13:27 | CONS ---
CONSULTATION DATE OF DICTATION: July 05, 2020. REASON FOR CONSULTATION: Elevated LFTs. HISTORY OF PRESENT ILLNESS: The patient is a 34-year-old pleasant white female with history of anxiety and depression, follows at [facility] on an outpatient basis and has been taking Zoloft for one year. She was not feeling well for the last 3 or 4 days, having some vague abdominal discomfort, nausea, vomiting, diarrhea, body aches and feeling hot and cold for the last 3 or 4 days duration. Her symptoms continued to progressively get worse. Her abdominal pain continued to get worse because of persistent throwing up and she came into the emergency room yesterday. In the ER, she was noted to have elevated ALT and AST in the range of 7,000. The patient denies any recent over the counter medications. Because she was having flu- like symptoms, she took some DayQuil and NyQuil, but did not take more than 2 tablets every day. She took [id number] Pepto-Bismol. No recent antibiotic use. Her Zoloft was increased from 50 mg to 100 mg daily about a week ago. She denies any excessive ingestion of Tylenol. Denies any antibiotic use and did not take any herbal supplements from the nutrition stores. No history of alcohol use. She never had any chronic liver disease. In the ER, she did have a CT of the abdomen and pelvis done that showed small amount of free fluid in the cul-de-sac. PAST MEDICAL HISTORY: Significant for anxiety and depression. MEDICATIONS: At home, Zoloft. ALLERGIES: No known drug allergies. SOCIAL HISTORY: Occasionally drinks alcohol once or twice a week. Chronic smoker. No intravenous drug use. FAMILY HISTORY: Brother has diabetes mellitus. Mother and father have diabetes too. REVIEW OF SYSTEMS: CARDIOPULMONARY: No chest pain or shortness of breath. : No dysuria or hematuria. MUSCULOSKELETAL unremarkable. SKIN unremarkable. ENDOCRINE unremarkable. PSYCHIATRIC unremarkable. NEUROLOGY: Unremarkable. ENT/VISION: Unremarkable. CONSTITUTIONAL: No recent weight loss. No fever, chills, night sweats. PHYSICAL EXAMINATION: She appears comfortable. No apparent distress. Vital signs stable. Blood pressure is 104/53, pulse rate 72, temperature 97.8. HEENT examination unremarkable. Conjunctivae pink. Sclerae anicteric. Oral cavity no lesions. NECK no JVD or lymph node enlargement. CHEST was clear to auscultation. HEART: Regular rate and rhythm. ABDOMEN: Soft. It was nontender, nondistended. Bowel sounds are positive. Liver and spleen were not palpable. EXTREMITIES: No pedal edema. SKIN no rashes. NEUROLOGIC: Alert and oriented x3. No focal deficits. LABS: Done yesterday in the ER: WBC 18.8, hemoglobin 13.8, platelets normal. Basic metabolic panel showed a BUN of 19, creatinine was 3.28. PTT/INR is 1.4. AST 7283, ALT 7622, alkaline phosphatase 140, T bilirubin 0.9. Today AST is down to 2076, ALT is down to 4354, alkaline phosphatase 117, bilirubin 0.9. Hepatitis serologies for A, B, and C were negative. CMV IgM is negative. [place] virus PCR is pending. She did have a CT of the abdomen and pelvis done that was normal other than small amount of free fluid in the cul-de-sac. IMPRESSION: 1. This is a lady who presented to the hospital with flu-like symptoms for the last 3 or 4 days duration with chills, body aches, nausea, vomiting, diarrhea, and abdominal pain and noted to have significant elevation of serum transaminases. All of this is more consistent with an acute viral syndrome with acute hepatocellular pattern. Hepatitis serologies for A, B and C as well as CMV has been negative. [place] virus PCR is still pending as this could be an atypical presentation of Covid-19 infection. Also, possibility of acute viral infections including EBV needs to be considered. The patient does not have any history of chronic liver disease. She denies taking any medications [id number] recently other than occasional Tylenol and Pepto-Bismol. No recent antibiotic use. Doubt medication induced hepatitis. 2. Elevated BUN and creatinine possible acute kidney injury which once again could be medication related. RECOMMENDATIONS: 1. Obtain EBV IgM antibody. 2. Await [place] virus PCR. 3. Monitor LFTs closely. 4. Workup for acute kidney injury. 5. Start her on a regular diet. 6. We will follow with you closely. Thank you for this consultation. MMODL / IJN: [id number] /
[2020-07-06 06:17] LABS: Anisocytosis Slight; Basophils % (A) 0 %; Eosinophils # (A) 0.6 k/uL (0-0.7); Eosinophils % (A) 5 %; HCT 34.3 % (34.0-46.0); Lymphocytes # (A) 1.4 k/uL (1.0-4.8); Lymphocytes % (A) 14 %; MCH 30.4 pg (25.0-35.0); MCHC 32.1 g/dL (31.0-37.0); MCV 94.6 fL (80.0-100.0); Mean Platelet Volume 9.2; Monocytes # (A) 0.6 k/uL (0-1.0); Monocytes % (A) 6 %; Neutrophils # (A) 7.6 k/uL (1.3-7.7); Neutrophils % (A) 74 %; Platelet Count 200 k/uL (150-450); RBC 3.63 m/uL (3.80-5.40); RDW 16.1 % (11.5-15.5); WBC 10.4 k/uL (3.8-10.6)
[2020-07-06] MEDS: PANTOPRAZOLE 40 MG/10 ML VIAL IVP SCH (07:38)
[2020-07-06] MEDS: SERTRALINE 100 MG TAB PO SCH (07:38)
[2020-07-06] MEDS: SODIUM CHLORIDE 0.9% 1,000 ML IV SCH ×2 (07:40→20:19)
[2020-07-06] MEDS ORDERED: ACETAMINOPHEN TAB 325 MG TAB PO PRN (10:22)
--- NOTE | 2020-07-06 10:29 | P.PN ---
Subjective patient is seen in follow-up for acute kidney injury. Creatinine 3.83 as of yesterday. Labs pending from this morning. Admits to good urine output. no vomiting or diarrhea. blood pressure stable. Vital signs are stable. General: The patient appeared well nourished and normally developed. HEENT: Head exam is unremarkable. Neck is without jugular venous distension. LUNGS: Lungs are clear to auscultation and percussion. Breath sounds decreased. HEART: Rate and Rhythm are regular. First and second heart sounds normal. No murmurs, rubs or gallops. ABDOMEN: EXTREMITITES: No clubbing, cyanosis, or edema. Objective - Vital Signs Vital signs: Vital Signs Temp 98.1 F 07/06/20 07:00 Pulse 66 07/06/20 07:00 Resp 18 07/06/20 07:00 BP 131/79 07/06/20 07:00 Pulse Ox 96 07/06/20 07:00 Intake & Output 07/05/20 07/06/20 07/06/20 18:59 06:59 18:59 Intake Total 200 Output Total 651 1300 400 Balance -451 -1300 -400 Intake: Oral 200 Output: Urine 600 1300 400 Post Void Residual 51 Other: Voiding Method Toilet Toilet Toilet # Voids 2 # Emeses 1 - Labs CBC & Chem 7: 07/06/20 06:01 07/05/20 06:09 Labs: Abnormal Lab Results - Last 24 Hours (Table) 07/05/20 07/06/20 Range/Units 06:09 06:01 RBC 3.63 L (3.80-5.40) m/uL Hgb 11.0 L (11.4-16.0) gm/dL RDW 16.1 H (11.5-15.5) % Total Protein (PEP) 5.0 L (6.2-8.2) g/dL Microbiology - Last 24 Hours (Table) 07/05/20 08:20 Stool Culture - Preliminary Stool 07/04/20 16:29 Blood Culture - Preliminary Blood No Growth after 24 hours Assessment and Plan Plan: assessment: 1. Acute kidney injury secondary to ATN secondary to severe intravascular volume depletion from vomiting. Creatinine 3.83 as of yesterday. Unknown baseline renal function. No evidence of hydronephrosis noted on imaging. 2. Transaminitis possibly due to hypoperfusion. GI following. 3. Proteinuria. Rule out GN. 4. Metabolic acidosis secondary to acute kidney injury and lactic acidosis. 5. Hypokalemia from poor intake. Magnesium normal. status post replacement. Plan: Decrease normal saline to 70 mL an hour. Encouraged oral intake. follow-up serologies. morning labs pending. Continue to monitor renal function and urine output.
--- NOTE | 2020-07-06 10:30 | P.PN ---
Subjective Progress Note Date: 07/06/20 History of present illness This is a 34-year-old patient who presented to the emergency room complaining of nausea vomiting and diarrhea since . Patient states that she threw up throughout the night and had multiple episodes of diarrhea. Patient is having mild epigastric pain. Patient states that she had [place] Garcia the night before however nobody else was sick. She denies any recent travel. She has not been around any animals and/or pets. Patient denies any deep cleaning or exposure to any chemicals. She denies any blood in her urine or kidney stones. Patient was seen on by her psychologist for a routine monthly visit to manage her depression. At that time patient was found to be afebrile however she was vomiting and was instructed to see her primary care physician. Patient was scheduled to [facility] on Monday however with continued episodes of vomiting she in turn came to the emergency room. Patient denies any ingestion of Tylenol. patient states that she did take Pepto-Bismol because of abdominal discomfort and vomiting. CT of the abdomen shows a small amount of free fluid in the cul-de-sac. At this time patient is found resting in bed in no acute distress. Patient states that she has not had any episodes of vomiting or diarrhea since she was admitted. Patient continues have slight epigastric pain. Patient denies any petechiae or bruising to mouth or extremities. Patient states that she has not been around anyone who has been sick. Patient states that she has no chance of being . Patient remained afebrile. Pulse rate 72, respirations 16, blood pressure 104/53 pulse ox a 93% on room air. WC 12.5, hemoglobin 11.2, sodium 135, potassium 3.9, B UN 21, creatinine 3.83, INR 1.4, lactate acid 2.0, AST 2076, ALC 4354. Covid testing pending, influenza A and B-, hepatitis screening negative CMV negative. Awaiting Aletha-Rasmussen virus 07/06: The patient continues to have some generalized abdominal pain in the right upper quadrant epigastric area. She denies any CVA tenderness. Nausea is i mproved with Zofran. She denies any diarrhea, no blood in her stools. She denies being sexually active. Pain medication has been added. Repeat blood work reveals W BC 10.4, hemoglobin 11, platelet count 200. Stool for lactoferrin negative. Covid 19 negative. CMV nonreactive. Hepatitis panel nonreactive. CMP remains pending. Aletha-Rasmussen pending. Patient has been seen by GI with recommendations for regular diet. Patient is also been seen by nephrology. Renal ultrasound was normal. Patient is on IV fluids, serologies ordered, bladder scan. Review Of Systems: Constitutional: No fever, no chills, no night sweats. No weight change. No weakness, fatigue or lethargy. No daytime sleepiness. EENT: No headache. No blurred vision or double vision, no loss of vision. No loss of Hearing, no ringing in the ears, no dizziness. No nasal drainage or congestion. No epistaxis. No sore throat. Lungs: No shortness of breath, cough, no sputum production. No wheezing. Cardiovascular: No chest pain, no lower extremity edema. No palpitations. No paroxysmal nocturnal dyspnea. No orthopnea. No lightheadedness or dizziness. No syncopal episodes. Abdominal: Reports abdominal discomfort to RUQ and epigastric areas. Reports nausea and vomiting-improving. no diarrhea. Report constipation. No bloody or tarry stools. no loss of appetite. Genitourinary: No dysuria, increased frequency, urgency. No urinary retention. Musculoskeletal: No myalgias. No muscle weakness, no gait dysfunction, no frequent falls. No back pain. No neck pain. Integumentary: No wounds, no lesions. No rash or pruritus. No unusual bruising. No change in hair or nails. Neurologic: No aphasia. No facial droop. No change in mentation. No head injury. No headache. No paralysis. No paresthesia. Psychiatric: Reports depression managed. No anxiety. No mood swings. Endocrine: No abnormal blood sugars. No weight change. No excessive sweating or thirst. Physical examination General Appearance: Alert, cooperative, no distress, appears stated age. Neck HEENT: Supple, no lymphadenopathy, no thyroid enlargement, no carotid bruits. Lungs: Clear to auscultation without crackles or wheezes no rhonchi, no deformity. Chest Wall: Chest wall normal expansion with deep inspiration no tenderness and no deformity was found on exam, no costochondral pain or discomfort. Heart: Regular rate and rhythm, S1, S2 normal, no murmur, rub or gallop. Back: Symmetric, no curvature, ROM normal, no CVA tenderness. Abdomen: Soft, right upper quadrant and epigastric tenderness, no rebound or rigidity, no hepatosplenomegaly. Extremities: Extremities normal, atraumatic, no cyanosis or edema. Pulses: 2+ and symmetric. Skin: Skin color, texture, tugor normal, no rashes or lesions. Neurologic: Alert oriented x3 cranial nerves II through XII intact, no motor deficit, no abnormal balance or gait Assessment and plan 1. Acute kidney failure, ATN etiology unknown possible infectious process of atypical virus such as E. coli, renal tubular necrosis. CT of abdomen and pelvis as noted above, pelvic labs pending, consult gastroenterology and nephrology. Renal ultrasound normal. Strict I&O. Repeat PT/INR tomorrow. One dose of Zosyn given. Consult with nephrology appreciated. Check bladder scan, serologies, monitor renal function closely. 2. Acute liver injury with elevated liver enzymes. History of Zoloft use for prolonged period unlikely cause of elevated liver enzymes. More likely related to an infectious process. GI consult appreciated. 3. Diarrhea with nausea vomiting abdominal pain. Continue hydration. May ad jauregui diet to full liquid GI consult appreciated. 4. Hypokalemia. Potassium replacement potassium chloride 60 mEq 1 5. Recurrent depression. Continue Zoloft unlikely cause of elevated liver enz ymes 6. Metabolic acidosis secondary to acute kidney injury and lactic acidosis. Continue IV fluids. 7. Nicotine dependence 8. GI prophylaxis. Protonix 40 mg IV push 9. DVT prophylaxis. Early ambulation CODE STATUS: Full code Discharge plan: Home Impression and plan of care have been directed as dictated by the signing physician. Ilsa Goodrich nurse practitioner acting as scribe for signing physician. Objective - Vital Signs Vital signs: Vital Signs Temp 98.1 F 07/06/20 07:00 Pulse 66 07/06/20 07:00 Resp 18 07/06/20 07:00 BP 131/79 07/06/20 07:00 Pulse Ox 96 07/06/20 07:00 Intake & Output 07/05/20 07/06/20 07/06/20 18:59 06:59 18:59 Intake Total 200 Output Total 651 1300 400 Balance -451 -1300 -400 Intake: Oral 200 Output: Urine 600 1300 400 Post Void Residual 51 Other: Voiding Method Toilet Toilet Toilet # Voids 2 # Emeses 1 - Labs CBC & Chem 7: 07/06/20 06:01 07/05/20 06:09 Labs: Abnormal Lab Results - Last 24 Hours (Table) 07/05/20 07/06/20 Range/Units 06:09 06:01 RBC 3.63 L (3.80-5.40) m/uL Hgb 11.0 L (11.4-16.0) gm/dL RDW 16.1 H (11.5-15.5) % Total Protein (PEP) 5.0 L (6.2-8.2) g/dL Microbiology - Last 24 Hours (Table) 07/05/20 08:20 Stool Culture - Preliminary Stool 07/04/20 16:29 Blood Culture - Preliminary Blood No Growth after 24 hours
[2020-07-06] MEDS: HYDROmorphone 1 MG/ML 1 ML SYRINGE IVP PRN ×2 (10:57→17:03)
[2020-07-06 11:15] LABS: INR 1.07 (0.90-1.11); Prothrombin Time 11.4 sec (9.9-11.9)
[2020-07-06 11:20] LABS: DNA Double-Stranded NEGATIVE (NEGATIVE)
[2020-07-06 11:44] LABS: EBV-EA (IgG) <0.2 AI; EBV-EBNA(IgG) >8.0 AI; EBV-VCA (IgG) >8.0 AI; EBV-VCA (IgM) <0.2 AI
[2020-07-06 11:46] LABS: African American GFR (CKD) 20.9 (60.0-200.0); Albumin 3.2 g/dL (3.80-4.90); Albumin/Globulin Ratio 1.68 (1.60-3.17); Anion Gap 7.9 mmol/L (4.00-12.00); BUN/Creat Ratio 6.88 Ratio (12.00-20.00); Carbon Dioxide 18.1 mmol/L (21.6-31.8); Globulin 1.9 g/dL (1.6-3.3); Magnesium 1.8 mg/dL (1.5-2.4); Potassium 3.6 mmol/L (3.5-5.5); Total Bilirubin 0.5 mg/dL (0.2-1.2); Total Protein 5.1 g/dL (6.2-8.2)
[2020-07-06 12:26] LABS: Protein/Creatinine Ratio,Urine 0.396
[2020-07-06 14:26] LABS: Albumin 2.73 g/dL (3.80-4.90); Gamma Globulin 0.73 g/dL (0.70-1.50)
--- NOTE | 2020-07-06 16:54 | P.PN ---
Subjective Progress Note Date: 07/06/20 This is a 34-year-old pleasant female who came in because she was not feeling well for the past 3-4 days with vague symptoms of abdominal discomfort, nausea, vomiting and diarrhea. As noted in the emergency room to have elevated ALT and AST in the range of 7000. The patient continues to deny any history of liver disease. Other than taking some DayQuil and NyQuil she is not taking any other [id number] medications. She is on Zoloft for her anxiety and depression which was increased from 50 mg to 100 mg about a week ago. She ate a banana for breakfast and tolerated her lunch, no vomiting since last night. Denies any abdominal pain or diarrhea since yesterday. Zofran improving nausea and vomiting. Objective - Vital Signs Vital signs: Vital Signs Temp 98.1 F 07/06/20 07:00 Pulse 66 07/06/20 07:00 Resp 18 07/06/20 07:00 BP 131/79 07/06/20 07:00 Pulse Ox 96 07/06/20 07:00 Intake & Output 07/05/20 07/06/20 07/06/20 18:59 06:59 18:59 Intake Total 200 Output Total 651 1300 400 Balance -451 -1300 -400 Intake: Oral 200 Output: Urine 600 1300 400 Post Void Residual 51 Other: Voiding Method Toilet Toilet Toilet # Voids 2 # Emeses 1 - Exam General appearance: The patient is alert, oriented, in no acute distress. HET: Head is normocephalic and atraumatic. Conjunctiva pink. Sclera and icteric. Neck: Supple without lymphadenopathy. Abdomen: Soft, nontender, nondistended with bowel sounds. No guarding or rigidity. Extremities: Normal skin color and turgor. No pedal edema Neurological: No focal deficits. Alert and oriented 3. - Labs CBC & Chem 7: 07/06/20 06:01 07/06/20 06:01 Labs: Abnormal Lab Results - Last 24 Hours (Table) 07/05/20 07/06/20 Range/Units 06:09 06:01 RBC 3.63 L (3.80-5.40) m/uL Hgb 11.0 L (11.4-16.0) gm/dL RDW 16.1 H (11.5-15.5) % Total Protein (PEP) 5.0 L (6.2-8.2) g/dL Microbiology - Last 24 Hours (Table) 07/05/20 08:20 Stool Culture - Preliminary Stool 07/04/20 16:29 Blood Culture - Preliminary Blood No Growth after 24 hours Assessment and Plan (1) Elevated liver enzymes Narrative/Plan: This is a 34-year-old female who presented to the hospital with flulike symptoms for the last 3-4 days duration with chills, body aches, nausea, vomiting, diarrhea and abdominal pain. She was noted to have significant elevation of her serum transaminases. This is more consistent with an acute viral syndrome with acute hepatocellular pattern. Hepatitis serologies for A, B, and C as well as CMV were ordered and have been negative. [place] virus PCR is negative. Aletha-Rasmussen virus was ordered and came back negative for IgM. The patient does not have any history of chronic liver disease. She denies any new medications. CT of the abdomen and pelvis shows mild fatty infiltration of the liver. Current Visit: Yes Status: Acute Code(s): R74.8 - ABNORMAL LEVELS OF OTHER SERUM ENZYMES SNOMED Code(s): 638600374 (2) Abdominal pain Current Visit: Yes Status: Acute Code(s): R10.9 - UNSPECIFIED ABDOMINAL PAIN SNOMED Code(s): 20181106 (3) Acute kidney injury Narrative/Plan: Elevated BUN and creatinine. Acute kidney injury secondary to ATN secondary to severe intravascular volume depletion from vomiting. Nephrology is on consult. Current Visit: Yes Status: Acute Code(s): N17.9 - ACUTE KIDNEY FAILURE, UNSPECIFIED SNOMED Code(s): 16042372 (4) Nausea and vomiting Current Visit: Yes Status: Acute Code(s): R11.2 - NAUSEA WITH VOMITING, UNSPECIFIED SNOMED Code(s): 46642044 Plan: 1. Obtain HSV and HIV antibody screening 2. Monitor LFTs closely 3. Advance diet as tolerated 4. Continue to follow recommendations per nephrology 5. Will add full liver serology workup 6. We will continue to follow closely The impression and plan of care has been dictated as directed. I performed a history and examination of this patient, discussed the same with the dictator. I agree with the dictator's note ,documented as a scribe. Any additional findings or plans will be noted.
[2020-07-07 00:51] VITALS: RESP 18
[2020-07-07] MEDS: HYDROmorphone 1 MG/ML 1 ML SYRINGE IVP PRN (01:01)
[2020-07-07 06:30] LABS: Anisocytosis Slight; HCT 34.3 % (34.0-46.0); HGB 11.1 gm/dL (11.4-16.0); MCH 31.2 pg (25.0-35.0); MCHC 32.3 g/dL (31.0-37.0); MCV 96.6 fL (80.0-100.0); Platelet Count 213 k/uL (150-450); RBC 3.55 m/uL (3.80-5.40); RDW 16.4 % (11.5-15.5); WBC 9.7 k/uL (3.8-10.6)
[2020-07-07 08:10] VITALS: BP 117/72; PULSE 78; TEMP 98.8
[2020-07-07] MEDS: HYDROcodone/APAP 5-325MG 1 EACH TAB PO PRN ×2 (08:11→13:38)
[2020-07-07] MEDS: SERTRALINE 100 MG TAB PO SCH (08:12)
[2020-07-07] MEDS: PANTOPRAZOLE 40 MG/10 ML VIAL IVP SCH (08:12)
[2020-07-07 09:33] LABS: Alpha Fetoprotein, Tumor Mkr 42.9 ng/mL (0.0-7.9); Protein, Total 5.3 g/dL (6.2-8.2)
[2020-07-07 09:35] LABS: % Iron Saturation 17.29 (12.00-45.00); African American GFR (CKD) 28.1 (60.0-200.0); Albumin 3.2 g/dL (3.80-4.90); Albumin/Globulin Ratio 1.68 (1.60-3.17); BUN/Creat Ratio 6.8 Ratio (12.00-20.00); C Reactive Protein 1.3 mg/dL (0.0-0.8); Calcium 8.1 mg/dL (8.7-10.3); Globulin 1.9 g/dL (1.6-3.3); Non-African American GFR(CKD) 24.3 (60.0-200.0); Potassium 3.7 mmol/L (3.5-5.5); Total Bilirubin 0.5 mg/dL (0.3-1.2); Total Protein 5.1 g/dL (6.2-8.2)
[2020-07-07 09:36] LABS: INR 0.99 (0.90-1.11); Prothrombin Time 10.6 sec (9.9-11.9)
--- NOTE | 2020-07-07 10:16 | P.PN ---
Subjective Progress Note Date: 07/07/20 History of present illness This is a 34-year-old patient who presented to the emergency room complaining of nausea vomiting and diarrhea since . Patient states that she threw up throughout the night and had multiple episodes of diarrhea. Patient is having mild epigastric pain. Patient states that she had [place] Garcia the night before however nobody else was sick. She denies any recent travel. She has not been around any animals and/or pets. Patient denies any deep cleaning or exposure to any chemicals. She denies any blood in her urine or kidney stones. Patient was seen on by her psychologist for a routine monthly visit to manage her depression. At that time patient was found to be afebrile however she was vomiting and was instructed to see her primary care physician. Patient was scheduled to see [facility] on Monday however with continued episodes of vomiting she in turn came to the emergency room. Patient denies any ingestion of Tylenol. patient states that she did take Pepto-Bismol because of abdominal discomfort and vomiting. CT of the abdomen shows a small amount of free fluid in the cul-de-sac. At this time patient is found resting in bed in no acute distress. Patient states that she has not had any episodes of vomiting or diarrhea since she was admitted. Patient continues have slight epigastric pain. Patient denies any petechiae or bruising to mouth or extremities. Patient states that she has not been around anyone who has been sick. Patient states that she has no chance of being . Patient remained afebrile. Pulse rate 72, respirations 16, blood pressure 104/53 pulse ox a 93% on room air. WC 12.5, hemoglobin 11.2, sodium 135, potassium 3.9, B UN 21, creatinine 3.83, INR 1.4, lactate acid 2.0, AST 2076, ALC 4354. Covid testing pending, influenza A and B-, hepatitis screening negative CMV negative. Awaiting Aletha-Rasmussen virus 07/06: The patient continues to have some generalized abdominal pain in the right upper quadrant epigastric area. She denies any CVA tenderness. Nausea is i mproved with Zofran. She denies any diarrhea, no blood in her stools. She denies being sexually active. Pain medication has been added. Repeat blood work reveals W BC 10.4, hemoglobin 11, platelet count 200. Stool for lactoferrin negative. Covid 19 negative. CMV nonreactive. Hepatitis panel nonreactive. CMP remains pending. Aletha-Rasmussen pending. Patient has been seen by GI with recommendations for regular diet. Patient is also been seen by nephrology. Renal ultrasound was normal. Patient is on IV fluids, serologies ordered, bladder scan. 07/07: Patient denies having any nausea vomiting. She is urinating well. Patient has been afebrile, heart rate 74, blood pressure 118/68, pulse ox 94% on room air. WBC 9.7, hemoglobin 1.1, platelet count 213. Sodium 142, potassium 3.7, chloride 113, CO2 21, BUN 17 and creatinine 2.5. AST is down to 188, ALT 1657, alkaline phosphatase 123. AFP is elevated at 42.9. Complement C3 low at 79.0 and complement C4 low at 4.1. SALLY screen was negative. Serum immunofixation showed no monoclonal paraprotein recognized. Double-strand DNA antibodies negative. Review Of Systems: Constitutional: No fever, no chills, no night sweats. No weight change. No weakness, fatigue or lethargy. No daytime sleepiness. EENT: No headache. No blurred vision or double vision, no loss of vision. No loss of Hearing, no ringing in the ears, no dizziness. No nasal drainage or congestion. No epistaxis. No sore throat. Lungs: No shortness of breath, cough, no sputum production. No wheezing. Cardiovascular: No chest pain, no lower extremity edema. No palpitations. No paroxysmal nocturnal dyspnea. No orthopnea. No lightheadedness or dizziness. No syncopal episodes. Abdominal: Denies abdominal pain. Denies nausea and vomiting. no diarrhea. Report constipation. No bloody or tarry stools. no loss of appetite. Genitourinary: No dysuria, increased frequency, urgency. No urinary retention. Musculoskeletal: No myalgias. No muscle weakness, no gait dysfunction, no frequent falls. No back pain. No neck pain. Integumentary: No wounds, no lesions. No rash or pruritus. No unusual bruising. No change in hair or nails. Neurologic: No aphasia. No facial droop. No change in mentation. No head injury. No headache. No paralysis. No paresthesia. Psychiatric: Reports depression managed. No anxiety. No mood swings. Endocrine: No abnormal blood sugars. No weight change. No excessive sweating or thirst. Physical examination General Appearance: Alert, cooperative, no distress, appears stated age. Patient is resting comfortably in bed. Neck HEENT: Supple, no lymphadenopathy, no thyroid enlargement, no carotid bruits. Lungs: Clear to auscultation without crackles or wheezes no rhonchi, no deformity. Chest Wall: Chest wall normal expansion with deep inspiration no tenderness and no deformity was found on exam, no costochondral pain or discomfort. Heart: Regular rate and rhythm, S1, S2 normal, no murmur, rub or gallop. Back: Symmetric, no curvature, ROM normal, no CVA tenderness. Abdomen: Soft, no tenderness, no rebound or rigidity, no hepatosplenomegaly. Extremities: Extremities normal, atraumatic, no cyanosis or edema. Pulses: 2+ and symmetric. Skin: Skin color, texture, tugor normal, no rashes or lesions. Neurologic: Alert oriented x3 cranial nerves II through XII intact, no motor deficit, no abnormal balance or gait Assessment and plan 1. Acute kidney failure, ATN. Consult with nephrology appreciated. 2. Acute liver injury with elevated liver enzymes, hepatorenal syndrome. History of Zoloft use for prolonged period unlikely cause of elevated liver enzymes. More likely related to an infectious process. GI consult appreciated. 3. Diarrhea with nausea vomiting abdominal pain. Patient is on a regular diet. GI consult appreciated. 4. Hypokalemia. Status post replacement. 5. Recurrent depression. Continue Zoloft unlikely cause of elevated liver enzymes 6. Metabolic acidosis secondary to acute kidney injury and lactic acidosis. Continue IV fluids. 7. Nicotine dependence 8. GI prophylaxis. Protonix 40 mg IV push 9. DVT prophylaxis. Early ambulation CODE STATUS: Full code Discharge plan: Home Impression and plan of care have been directed as dictated by the signing physician. Ilsa Goodrich nurse practitioner acting as scribe for signing physician. Objective - Vital Signs Vital signs: Vital Signs Temp 98.2 F 07/07/20 00:49 Pulse 74 07/07/20 00:49 Resp 18 07/07/20 00:49 BP 118/68 07/07/20 00:49 Pulse Ox 94 L 07/07/20 00:49 Intake & Output 07/06/20 07/07/20 07/07/20 18:59 06:59 18:59 Intake Total 400 Output Total 1300 375 Balance -900 -375 Intake: Oral 400 Output: Urine 1300 375 Other: Voiding Method Toilet Toilet - Labs CBC & Chem 7: 07/07/20 06:06 07/07/20 06:06 Labs: Abnormal Lab Results - Last 24 Hours (Table) 07/04/20 07/05/20 07/05/20 Range/Units 16:45 06:09 06:09 RBC (3.80-5.40) m/uL Hgb (11.4-16.0) gm/dL RDW (11.5-15.5) % Chloride (96-109) mmol/L Carbon Dioxide (21.6-31.8) mmol/L Creatinine (0.6-1.5) mg/dL Est GFR (CKD-EPI)AfAm (60.0-200.0) Est GFR (CKD-EPI)NonAf (60.0-200.0) BUN/Creatinine Ratio (12.00-20.00) Ratio Glucose (70-110) mg/dL Calcium (8.7-10.3) mg/dL AST (13-35) U/L ALT (8-44) U/L Alkaline Phosphatase (41-126) U/L Total Protein (6.2-8.2) g/dL Albumin (3.80-4.90) g/dL Albumin (PEP) 2.73 L (3.80-4.90) g/dL Beta Globulins 0.52 L (0.60-1.30) g/dL Complement C3 79.0 L (80.0-207.0) mg/dL Complement C4 4.1 L (10.0-53.0) mg/dL EBV Capsid Ag IgG Intrp POSITIVE H (NEGATIVE) EBV Nuc Ag IgG Interp POSITIVE H (NEGATIVE) 07/06/20 07/07/20 Range/Units 06:01 06:06 RBC 3.55 L (3.80-5.40) m/uL Hgb 11.1 L (11.4-16.0) gm/dL RDW 16.4 H (11.5-15.5) % Chloride 111 H (96-109) mmol/L Carbon Dioxide 18.1 L (21.6-31.8) mmol/L Creatinine 3.2 H (0.6-1.5) mg/dL Est GFR (CKD-EPI)AfAm 20.9 L (60.0-200.0) Est GFR (CKD-EPI)NonAf 18.0 L (60.0-200.0) BUN/Creatinine Ratio 6.88 L (12.00-20.00) Ratio Glucose 115 H (70-110) mg/dL Calcium 8.0 L (8.7-10.3) mg/dL AST 522 H (13-35) U/L ALT 2682 H (8-44) U/L Alkaline Phosphatase 129 H (41-126) U/L Total Protein 5.1 L (6.2-8.2) g/dL Albumin 3.20 L (3.80-4.90) g/dL Albumin (PEP) (3.80-4.90) g/dL Beta Globulins (0.60-1.30) g/dL Complement C3 (80.0-207.0) mg/dL Complement C4 (10.0-53.0) mg/dL EBV Capsid Ag IgG Intrp (NEGATIVE) EBV Nuc Ag IgG Interp (NEGATIVE) Microbiology - Last 24 Hours (Table) 07/04/20 16:29 Blood Culture - Preliminary Blood No Growth after 48 hours
--- NOTE | 2020-07-07 10:46 | P.PN ---
Subjective patient is seen in follow-up for acute kidney injury. Renal function starting to improve. Creatinine 2.5 today. Good urine output. No vomiting or diarrhea today. Oral intake fair. Vital signs are stable. General: The patient appeared well nourished and normally developed. HEENT: Head exam is unremarkable. Neck is without jugular venous distension. LUNGS: Lungs are clear to auscultation and percussion. Breath sounds decreased. HEART: Rate and Rhythm are regular. First and second heart sounds normal. No murmurs, rubs or gallops. ABDOMEN: Soft, nontender. EXTREMITITES: No clubbing, cyanosis, or edema. Objective - Vital Signs Vital signs: Vital Signs Temp 98.8 F 07/07/20 07:00 Pulse 78 07/07/20 07:00 Resp 18 07/07/20 00:49 BP 117/72 07/07/20 07:00 Pulse Ox 92 L 07/07/20 07:00 Intake & Output 07/06/20 07/07/20 07/07/20 18:59 06:59 18:59 Intake Total 400 450 Output Total 1300 375 900 Balance -900 -375 -450 Intake: Oral 400 450 Output: Urine 1300 375 900 Other: Voiding Method Toilet Toilet - Labs CBC & Chem 7: 07/07/20 06:06 07/07/20 06:06 Labs: Abnormal Lab Results - Last 24 Hours (Table) 07/04/20 07/05/20 07/05/20 Range/Units 16:45 06:09 06:09 RBC (3.80-5.40) m/uL Hgb (11.4-16.0) gm/dL RDW (11.5-15.5) % Chloride (96-109) mmol/L Carbon Dioxide (21.6-31.8) mmol/L Creatinine (0.6-1.5) mg/dL Est GFR (CKD-EPI)AfAm (60.0-200.0) Est GFR (CKD-EPI)NonAf (60.0-200.0) BUN/Creatinine Ratio (12.00-20.00) Ratio Glucose (70-110) mg/dL Calcium (8.7-10.3) mg/dL AST (13-35) U/L ALT (8-44) U/L Alkaline Phosphatase (41-126) U/L C-Reactive Protein (0.0-0.8) mg/dL Total Protein (6.2-8.2) g/dL Total Protein (PEP) (6.2-8.2) g/dL Albumin (3.80-4.90) g/dL Albumin (PEP) 2.73 L (3.80-4.90) g/dL Beta Globulins 0.52 L (0.60-1.30) g/dL Tumor Marker AFP (0.0-7.9) ng/mL Complement C3 79.0 L (80.0-207.0) mg/dL Complement C4 4.1 L (10.0-53.0) mg/dL EBV Capsid Ag IgG Intrp POSITIVE H (NEGATIVE) EBV Nuc Ag IgG Interp POSITIVE H (NEGATIVE) 07/06/20 07/07/20 07/07/20 Range/Units 06:01 06:06 06:06 RBC 3.55 L (3.80-5.40) m/uL Hgb 11.1 L (11.4-16.0) gm/dL RDW 16.4 H (11.5-15.5) % Chloride 111 H (96-109) mmol/L Carbon Dioxide 18.1 L (21.6-31.8) mmol/L Creatinine 3.2 H (0.6-1.5) mg/dL Est GFR (CKD-EPI)AfAm 20.9 L (60.0-200.0) Est GFR (CKD-EPI)NonAf 18.0 L (60.0-200.0) BUN/Creatinine Ratio 6.88 L (12.00-20.00) Ratio Glucose 115 H (70-110) mg/dL Calcium 8.0 L (8.7-10.3) mg/dL AST 522 H (13-35) U/L ALT 2682 H (8-44) U/L Alkaline Phosphatase 129 H (41-126) U/L C-Reactive Protein (0.0-0.8) mg/dL Total Protein 5.1 L (6.2-8.2) g/dL Total Protein (PEP) 5.3 L (6.2-8.2) g/dL Albumin 3.20 L (3.80-4.90) g/dL Albumin (PEP) (3.80-4.90) g/dL Beta Globulins (0.60-1.30) g/dL Tumor Marker AFP 42.9 H (0.0-7.9) ng/mL Complement C3 (80.0-207.0) mg/dL Complement C4 (10.0-53.0) mg/dL EBV Capsid Ag IgG Intrp (NEGATIVE) EBV Nuc Ag IgG Interp (NEGATIVE) 07/07/20 Range/Units 06:06 RBC (3.80-5.40) m/uL Hgb (11.4-16.0) gm/dL RDW (11.5-15.5) % Chloride 113 H (96-109) mmol/L Carbon Dioxide 21.0 L (21.6-31.8) mmol/L Creatinine 2.5 H (0.6-1.5) mg/dL Est GFR (CKD-EPI)AfAm 28.1 L (60.0-200.0) Est GFR (CKD-EPI)NonAf 24.3 L (60.0-200.0) BUN/Creatinine Ratio 6.80 L (12.00-20.00) Ratio Glucose (70-110) mg/dL Calcium 8.1 L (8.7-10.3) mg/dL AST 188 H (13-35) U/L ALT 1657 H (8-44) U/L Alkaline Phosphatase (41-126) U/L C-Reactive Protein 1.3 H (0.0-0.8) mg/dL Total Protein 5.1 L (6.2-8.2) g/dL Total Protein (PEP) (6.2-8.2) g/dL Albumin 3.20 L (3.80-4.90) g/dL Albumin (PEP) (3.80-4.90) g/dL Beta Globulins (0.60-1.30) g/dL Tumor Marker AFP (0.0-7.9) ng/mL Complement C3 (80.0-207.0) mg/dL Complement C4 (10.0-53.0) mg/dL EBV Capsid Ag IgG Intrp (NEGATIVE) EBV Nuc Ag IgG Interp (NEGATIVE) Microbiology - Last 24 Hours (Table) 07/04/20 16:29 Blood Culture - Preliminary Blood No Growth after 48 hours Assessment and Plan Plan: assessment: 1. Acute kidney injury secondary to ATN secondary to severe intravascular volume depletion from vomiting. Renal function improving. Creatinine 2.5 today. Unknown baseline renal function. No evidence of hydronephrosis noted on imaging. 2. Transaminitis possibly due to hypoperfusion. GI following. 3. Proteinuria. UPC 0.39. Rule out GN. Complements noted to be low. However SALLY and other serologies are negative. 4. Metabolic acidosis secondary to acute kidney injury and lactic acidosis. Improving. 5. Hypokalemia from poor intake. Magnesium normal. status post replacement. Better. Plan: Maintain normal saline. Encourage oral intake. Avoid nephrotoxins. Will repeat complement levels outpatient. Biopsy will be considered if remains persistently low.
[2020-07-07] MEDS: SODIUM CHLORIDE 0.9% 1,000 ML IV SCH (10:54)
--- NOTE | 2020-07-07 12:31 | P.DS ---
Providers Date of admission: 07/04/20 16:48 Expected date of discharge: 07/07/20 Attending physician: Antoine Key Consults: 07/04/20 16:48 Consult Physician Stat Consulting Provider: Yasmany Hall Consult Reason/Comments: acute kidney injury, elevated liver enzymes, n/v/d, abdominal pain Do you want consulting provider notified?: Yes Consult Physician Stat Consulting Provider: Carmen Avila Consult Reason/Comments: acute kidney injury, elevated liver enzymes, n/v/d, abdominal pain Do you want consulting provider notified?: Yes Primary care physician: [facility] Course: History of present illness This is a 34-year-old patient who presented to the emergency room complaining of nausea vomiting and diarrhea since . Patient states that she threw up throughout the night and had multiple episodes of diarrhea. Patient is having mild epigastric pain. Patient states that she had Garcia the night before however nobody else was sick. She denies any recent travel. She has not been around any animals and/or pets. Patient denies any deep cleaning or exposure to any chemicals. She denies any blood in her urine or kidney stones. Patient was seen on by her psychologist for a routine monthly visit to manage her depression. At that time patient was found to be afebrile however she was vom iting and was instructed to see her primary care physician. [facility] however with continued episodes of vomiting she in turn came to the emergency room. Patient denies any ingestion of Tylenol. patient states that she did take Pepto-Bismol because of abdominal discomfort and vomiting. CT of the abdomen shows a small amount of free fluid in the cul-de-sac. At this time patient is found resting in bed in no acute distress. Patient states that she has not had any episodes of vomiting or diarrhea since she was admitted. Patient continues have slight epigastric pain. Patient denies any petechiae or bruising to mouth or extremities. Patient states that she has not been around anyone who has been sick. Patient states that she has no chance of being . Patient remained afebrile. Pulse rate 72, respirations 16, blood pressure 104/53 pulse ox a 93% on room air. WC 12.5, hemoglobin 11.2, sodium 135, potassium 3.9, B UN 21, creatinine 3.83, INR 1.4, lactate acid 2.0, AST 2076, ALC 4354. Covid testing pending, influenza A and B-, hepatitis screening negative CMV negative. Awaiting Aletha-Rasmussen virus 07/06: The patient continues to have some generalized abdominal pain in the right upper quadrant epigastric area. She denies any CVA tenderness. Nausea is improved with Zofran. She denies any diarrhea, no blood in her stools. She denies being sexually active. Pain medication has been added. Repeat blood work reveals W BC 10.4, hemoglobin 11, platelet count 200. Stool for lactoferrin negative. Covid 19 negative. CMV nonreactive. Hepatitis panel nonreactive. CMP remains pending. Aletha-Rasmussen pending. Patient has been seen by GI with recommendations for regular diet. Patient is also been seen by nephrology. Renal ultrasound was normal. Patient is on IV fluids, serologies ordered, bladder scan. 07/07: Patient denies having any nausea vomiting. She is urinating well. Patient has been afebrile, heart rate 74, blood pressure 118/68, pulse ox 94% on room air. WBC 9.7, hemoglobin 1.1, platelet count 213. Sodium 142, potassium 3.7, chloride 113, CO2 21, BUN 17 and creatinine 2.5. AST is down to 188, ALT 1657, alkaline phosphatase 123. AFP is elevated at 42.9. Complement C3 low at 79.0 and complement C4 low at 4.1. SALLY screen was negative. Serum immunofixation showed no monoclonal paraprotein recognized. Double-strand DNA antibodies negative. Patient denies having any nausea vomiting. She states she is urinating well. We have clearance from nephrology and GI for discharge home. Patient will be discharged home today in stable condition. Patient has been instructed to be off work until Monday. Assessment and plan 1. Acute kidney failure, ATN. 2. Acute liver injury with elevated liver enzymes, hepatorenal syndrome. 3. Diarrhea with nausea vomiting abdominal pain. 4. Hypokalemia. 5. Recurrent depression. 6. Metabolic acidosis secondary to acute kidney injury and lactic acidosis. 7. Nicotine dependence Discharge plan: Home Impression and plan of care have been directed as dictated by the signing physician. Ilsa Goodrich nurse practitioner acting as scribe for signing physician. Patient Condition at Discharge: Good Plan - Discharge Summary New Discharge Prescriptions: Continue Sertraline HCl [Zoloft] 100 mg PO DAILY Discharge Medication List Sertraline HCl [Zoloft] 100 mg PO DAILY 07/04/20 [History] Follow up Appointment(s)/Referral(s): Carmen Avila MD [STAFF PHYSICIAN] - 08/04/20 2:00 pm [facility]Primary Care Provider[facility] - 07/08/20 11:30 am Yasmany Hall DO [STAFF PHYSICIAN] - 1 Week (office will call for appointment) Ambulatory/Diagnostic Orders: Comprehensive Metabolic Panel [LAB.AMB] Location: None Selected Patient Instructions/Handouts: Acute Kidney Injury (DC) Activity/Diet/Wound Care/Special Instructions: Off work until rechecked at [facility] Discharge Disposition: HOME SELF-CARE
[2020-07-07 13:30] LABS: Ceruloplasmin 22.2 mg/dL (20.0-60.0)
--- NOTE | 2020-07-07 13:33 | P.PN ---
Subjective Progress Note Date: 07/07/20 Principal diagnosis: Nausea, vomiting, diarrhea This is a 34-year-old pleasant female who came in because she was not feeling well for the past 3-4 days with vague symptoms of abdominal discomfort, nausea, vomiting and diarrhea. As noted in the emergency room to have elevated ALT and AST in the range of 7000. The patient continues to deny any history of liver disease. 2 is seen and examined at the bedside. She states she still has some mild nausea but the Zofran is helping. She denies any vomiting states she still having approximately 2 loose stools a day. Denies rectal bleeding or melena. HSV and HIV were ordered and are pending. Objective - Vital Signs Vital signs: Vital Signs Temp 98.8 F 07/07/20 07:00 Pulse 78 07/07/20 07:00 Resp 18 07/07/20 00:49 BP 117/72 07/07/20 07:00 Pulse Ox 92 L 07/07/20 07:00 Intake & Output 07/06/20 07/07/20 07/07/20 18:59 06:59 18:59 Intake Total 400 450 Output Total 1300 375 900 Balance -900 -375 -450 Intake: Oral 400 450 Output: Urine 1300 375 900 Other: Voiding Method Toilet Toilet - Exam General appearance: The patient is alert, oriented, in no acute distress. HET: Head is normocephalic and atraumatic. Conjunctiva pink. Sclera and icteric. Neck: Supple without lymphadenopathy. Abdomen: Soft, mild epigastric tenderness, nondistended with bowel sounds. No guarding or rigidity. Extremities: Normal skin color and turgor. No pedal edema Neurological: No focal deficits. Alert and oriented 3. - Labs CBC & Chem 7: 07/07/20 06:06 07/07/20 06:06 Labs: Abnormal Lab Results - Last 24 Hours (Table) 07/05/20 07/07/20 07/07/20 Range/Units 06:09 06:06 06:06 RBC 3.55 L (3.80-5.40) m/uL Hgb 11.1 L (11.4-16.0) gm/dL RDW 16.4 H (11.5-15.5) % Chloride (96-109) mmol/L Carbon Dioxide (21.6-31.8) mmol/L Creatinine (0.6-1.5) mg/dL Est GFR (CKD-EPI)AfAm (60.0-200.0) Est GFR (CKD-EPI)NonAf (60.0-200.0) BUN/Creatinine Ratio (12.00-20.00) Ratio Calcium (8.7-10.3) mg/dL AST (13-35) U/L ALT (8-44) U/L C-Reactive Protein (0.0-0.8) mg/dL Total Protein (6.2-8.2) g/dL Total Protein (PEP) 5.3 L (6.2-8.2) g/dL Albumin (3.80-4.90) g/dL Albumin (PEP) 2.73 L (3.80-4.90) g/dL Beta Globulins 0.52 L (0.60-1.30) g/dL Tumor Marker AFP 42.9 H (0.0-7.9) ng/mL 07/07/20 Range/Units 06:06 RBC (3.80-5.40) m/uL Hgb (11.4-16.0) gm/dL RDW (11.5-15.5) % Chloride 113 H (96-109) mmol/L Carbon Dioxide 21.0 L (21.6-31.8) mmol/L Creatinine 2.5 H (0.6-1.5) mg/dL Est GFR (CKD-EPI)AfAm 28.1 L (60.0-200.0) Est GFR (CKD-EPI)NonAf 24.3 L (60.0-200.0) BUN/Creatinine Ratio 6.80 L (12.00-20.00) Ratio Calcium 8.1 L (8.7-10.3) mg/dL AST 188 H (13-35) U/L ALT 1657 H (8-44) U/L C-Reactive Protein 1.3 H (0.0-0.8) mg/dL Total Protein 5.1 L (6.2-8.2) g/dL Total Protein (PEP) (6.2-8.2) g/dL Albumin 3.20 L (3.80-4.90) g/dL Albumin (PEP) (3.80-4.90) g/dL Beta Globulins (0.60-1.30) g/dL Tumor Marker AFP (0.0-7.9) ng/mL Microbiology - Last 24 Hours (Table) 07/04/20 16:29 Blood Culture - Preliminary Blood No Growth after 48 hours Assessment and Plan (1) Elevated liver enzymes Narrative/Plan: This is a 34-year-old female who presented to the hospital with flulike symptoms for the last 3-4 days duration with chills, body aches, nausea, vomiting, diarrhea and abdominal pain. She was noted to have significant elevation of her serum transaminases. This is more consistent with an acute viral syndrome with acute hepatocellular pattern. Hepatitis serologies for A, B, and C as well as CMV were ordered and have been negative. [place] virus PCR is negative. Aletha-Rasmussen virus was ordered and came back negative for IgM. The patient does not have any history of chronic liver disease. She denies any new medications. CT of the abdomen and pelvis shows mild fatty infiltration of the liver. Current Visit: Yes Status: Acute Code(s): R74.8 - ABNORMAL LEVELS OF OTHER SERUM ENZYMES SNOMED Code(s): 502333002 (2) Abdominal pain Current Visit: Yes Status: Acute Code(s): R10.9 - UNSPECIFIED ABDOMINAL PAIN SNOMED Code(s): 02154641 (3) Acute kidney injury Narrative/Plan: Elevated BUN and creatinine. Acute kidney injury secondary to ATN secondary to severe intravascular volume depletion from vomiting. Nephrology is on consult. Current Visit: Yes Status: Acute Code(s): N17.9 - ACUTE KIDNEY FAILURE, UNSPECIFIED SNOMED Code(s): 86213972 (4) Nausea and vomiting Current Visit: Yes Status: Acute Code(s): R11.2 - NAUSEA WITH VOMITING, UNSPECIFIED SNOMED Code(s): 91654242 Plan: 1. Obtain HSV and HIV antibody screening 2. Monitor LFTs closely 3. Advance diet as tolerated 4. Continue to follow recommendations per nephrology 5. Will add full liver serology workup 6. Okay for discharge if medically cleared by internal medicine and nephrology. Patient will need close follow-up for LFTs in 1 week. The impression and plan of care has been dictated as directed. I performed a history and examination of this patient, discussed the same with the dictator. I agree with the dictator's note ,documented as a scribe. Any additional findings or plans will be noted.
[2020-07-07 14:47] LABS: C-ANCA <1:20 Titer (<1:20)
[2020-07-07 15:00] LABS: HIV 2 AB Non-Reactive (Non-Reactive); HIV AB P24 Non-Reactive (Non-Reactive); HIV P24 AG Non-Reactive (Non-Reactive)
[2020-07-07 15:15] LABS: Albumin 2.87 g/dL (3.80-4.90); Gamma Globulin 0.76 g/dL (0.70-1.50)
[2020-07-08 06:23] LABS: Herpes simplex I and/or II IgM 0.13 INDEX (<=0.90); Herpes simplex IgG I Ab 25.9 (< or = 0.90); Herpes simplex IgG II Ab 0.09 (< or = 0.90)
[2020-07-08] MEDS ORDERED: PANTOPRAZOLE 40 MG TABLET PO SCH (07:30)
[2020-07-08 12:21] LABS: Liver/Kidney Microsome Antibod 1.5 UNITS (<=20)
--- NOTE | 2020-07-09 13:23 | CDI ---
Documentation Clarification Form Date: 07/09/2020 12:03:00 PM From: Brook Pearson Phone: If you have a question about this query, please contact Felicia Ross Senior Information Security Architect at [phone] between 8am and 5pm. Admit Date: 07/04/2020 04:48:00 PM Patient Name: Airam James Visit Number: [id number] Discharge Date: 07/07/2020 02:41:00 PM ATTENTION: The Clinical Documentation Specialists (CDI) and [facility] Coding Staff appreciate your assistance in clarifying documentation. Please respond to the clarification below the line at the bottom and electronically sign. The CDI & [facility] Coding staff will review the response and follow-up if needed. Please note: Queries are made part of the Legal Health Record. If you have any questions, please contact the author of this message via ITS. Dr. Antoine Key Your patient has a positive serology for EBV Capsid Ag IgG and EBV Nuc Ag IgG. Per DCS and H and P "Awaiting Aletha-Rasmussen virus". Please clarify the clinical significance of the positive serology for EBV Capsid Ag IgG and EBV Nuc Ag IgG. History/Risk Factors: Patient with nausea, vomiting, ATN, hepatorenal syndrome. Negative Covid Treatment: hydration, Protonix 40 mg IV push Based on the positive serology of EBV Ag IgG, please clarify the clinical significance. Aletha Rasmussen virus xx No, Aletha Rasmussen virus ruled out Other (please specify diagnosis) Unable to determine MTDD
== END 2020-07-07 14:41 | disposition home or self-care (01) | DRG 441 ==
LOC: EC 13:55 → 4SSUR 16:48 → MERGE 16:48 → EEVIPCON 16:48
PROVIDERS: ADMIT Internal Medicine Geriatric Medicine; ATTEND Internal Medicine Geriatric Medicine
DX: K76.7 Hepatorenal syndrome (principal); N17.0 Acute kidney failure with tubular necrosis; E87.2 Acidosis; F33.9 Major depressive disorder, recurrent, unspecified; K76.0 Fatty (change of) liver, not elsewhere classified; E86.9 Volume depletion, unspecified; E87.6 Hypokalemia; F17.210 Nicotine dependence, cigarettes, uncomplicated; Z20.828 Contact with and (suspected) exposure to other viral communicable diseases; F41.9 Anxiety disorder, unspecified; Z79.899 Other long term (current) drug therapy; Z83.3 Family history of diabetes mellitus; Z81.8 Family history of other mental and behavioral disorders; Z82.49 Family history of ischemic heart disease and other diseases of the circulatory system; Z80.9 Family history of malignant neoplasm, unspecified; Z56.0 Unemployment, unspecified; Z60.2 Problems related to living alone
CPT/HCPCS: 36415; 71046; 74176; 76770; 80053; 80074; 80306; 80329; 81001; 81025; 82103; 82105; 82272; 82390; 82550; 82570; 83516; 83540; 83550; 83605; 83630; 83690; 83735; 83930; 84156; 84165; 85025; 85027; 85610; 85730; 86038; 86140; 86160; 86162; 86225; 86255; 86334; 86335; 86376; 86644; 86645; 86663; 86664; 86665; 86694; 86695; 86696; 87040; 87045; 87046; 87390; 87502; 96361; 96365; 96375; 99285

== ENCOUNTER → 2020-08-06 | Outpatient (CLI) | payer OTHER ==
[2020-08-06 20:33] LABS: ALT 21 U/L (8-44); AST 22 U/L (13-35); Albumin/Globulin Ratio 1.87 (1.60-3.17); Alkaline Phosphatase 111 U/L (41-126); Bilirubin, Conjugated <0.20 mg/dL (0.20-0.40); Globulin 2.3 g/dL (1.6-3.3); Total Bilirubin 0.2 mg/dL (0.3-1.2); Total Protein 6.6 g/dL (6.2-8.2)
== END | disposition home or self-care (01) ==
LOC: LABWHC1 12:01
PROVIDERS: ATTEND Nurse Practitioner
DX: Z20.5 Contact with and (suspected) exposure to viral hepatitis (principal); R77.2 Abnormality of alphafetoprotein
CPT/HCPCS: 36415; 80076; 82105

== ENCOUNTER 2020-09-09 22:24 | Emergency (ER) | payer OTHER ==
--- NOTE | 2020-09-09 22:47 | ED ---
Psych HPI - General Source: police Mode of arrival: ambulatory <Christopher Anne - Last Filed: 09/09/20 22:47> <True Bunn - Last Filed: 09/10/20 10:43> - General Chief Complaint: Psychiatric Symptoms Stated Complaint: Petition Time Seen by Provider: 09/09/20 22:30 - Related Data Home Medications Medication Instructions Recorded Confirmed FLUoxetine HCL [PROzac] 20 mg PO DAILY 09/10/20 09/10/20 Allergies Allergy/AdvReac Type Severity Reaction Status Date / Time bee venom protein (honey bee) Allergy Anaphylaxis Verified 09/09/20 22:29 Review of Systems ROS Other: All systems not noted in ROS Statement are negative. <Christopher Anne - Last Filed: 09/09/20 22:47> ROS Other: All systems not noted in ROS Statement are negative. <True Bunn - Last Filed: 09/10/20 10:43> ROS Statement: Those systems with pertinent positive or pertinent negative responses have been documented in the HPI. Past Medical History Past Medical History: No Reported History History of Any Multi-Drug Resistant Organisms: None Reported Additional Past Surgical History / Comment(s): right foot Past Anesthesia/Blood Transfusion Reactions: No Reported Reaction Past Psychological History: Depression Smoking Status: Current every day smoker Past Alcohol Use History: None Reported Past Drug Use History: None Reported <Christopher Anne - Last Filed: 09/09/20 22:47> General Exam Limitations: no limitations <Christopher Anne - Last Filed: 09/09/20 22:47> Course <True Bunn - Last Filed: 09/10/20 10:43> Vital Signs 09/09/20 09/10/20 22:26 03:51 Temperature 97.8 F 98.6 F Pulse Rate 81 84 Respiratory 18 16 Rate Blood Pressure 149/115 105/64 O2 Sat by Pulse 100 99 Oximetry - Reevaluation(s) Reevaluation #1: 09/10/20 10:38 The patient was brought in on a pickup order she denies any suicidal thought or ideation fevers chills nausea times sweats or other complaints. This was a well-developed well-nourished awake alert oriented 3 female HEENT [place] cephalic atraumatic PERRL EOMI conjunctiva clear neck supple no stridor JVD or bruits full range of motion chest lungs clear heart regular abdomen soft nontender extremities bilaterally present and symmetric neurological exam cranial there is tooth 12 grossly intact. Awake alert not suicidal not homicidal. (True Bunn) Medical Decision Making <True Bunn - Last Filed: 09/10/20 10:43> - Medical Decision Making The patient was endorsed me at shift change awaiting evaluation by the EPS ser vice. Patient was found not to be wrist herself or anyone else he will be discharged with outpatient referrals. (True Bunn) - Lab Data Lab Results 09/09/20 Range/Units 22:51 Urine Opiates Screen Not Detected (NotDetected) Ur Oxycodone Screen Not Detected (NotDetected) Urine Methadone Screen Not Detected (NotDetected) Ur Propoxyphene Screen Not Detected (NotDetected) Ur Barbiturates Screen Not Detected (NotDetected) U Tricyclic Antidepress Not Detected (NotDetected) Ur Phencyclidine Scrn Not Detected (NotDetected) Ur Amphetamines Screen Not Detected (NotDetected) U Methamphetamines Scrn Not Detected (NotDetected) U Benzodiazepines Scrn Not Detected (NotDetected) Urine Cocaine Screen Not Detected (NotDetected) U Marijuana (THC) Screen Not Detected (NotDetected) Disposition <Christopher Anne - Last Filed: 09/09/20 22:47> Is patient prescribed a controlled substance at d/c from ED?: No <True Bunn - Last Filed: 09/10/20 10:43> Clinical Impression: Feared condition not demonstrated, History of depression Disposition: HOME SELF-CARE Condition: Good Instructions (If sedation given, give patient instructions): Depression (ED) Additional Instructions: Follow-up as per the EPS service Referrals: None,Stated [Primary Care Provider] - 1-2 days
[2020-09-09 23:10] LABS: Amphetamine Screen,Urine Not Detected (NotDetected); Barbiturate Screen,Urine Not Detected (NotDetected); Benzodiazepines Screen,Urine Not Detected (NotDetected); Cocaine Screen,Urine Not Detected (NotDetected); Methadone Screen, Urine Not Detected (NotDetected); Opiate Screen,Urine Not Detected (NotDetected); Oxycodone Screen, Urine Not Detected (NotDetected); Phencyclidine Screen,Urine Not Detected (NotDetected); Tricyclic Antidepressant,Urine Not Detected (NotDetected); Urn Cannabinoid Scrn Not Detected (NotDetected)
[2020-09-10 11:25] VITALS: BP 102/57; PULSE 85; RESP 18; TEMP 98.8
== END 2020-09-10 11:23 | disposition home or self-care (01) ==
LOC: EC 22:24
DX: Z71.1 Person with feared health complaint in whom no diagnosis is made (principal); Z86.59 Personal history of other mental and behavioral disorders; F17.200 Nicotine dependence, unspecified, uncomplicated; Z79.899 Other long term (current) drug therapy; Z91.030 Bee allergy status
CPT/HCPCS: 80306; 82075; 99284

== ENCOUNTER 2022-06-10 23:01 | Observation (INO) | payer OTHER ==
[2022-06-11] MEDS ORDERED: SODIUM CHLORIDE 0.9% 1,000 ML IV STA ×2 (02:30)
[2022-06-11] MEDS ORDERED: PROCHLORPERAZINE INJ 10 MG/2 ML VIAL IVP STA ×2 (02:31→14:06)
[2022-06-11] MEDS ORDERED: diphenhydrAMINE 50 MG/ML 1 ML VIAL IVP STA ×2 (02:31→14:06)
[2022-06-11] MEDS ORDERED: KETOROLAC 15 MG/ML 1 ML VIAL IVP STA ×2 (02:31→14:06)
--- NOTE | 2022-06-11 02:34 | ED ---
Headache HPI - General Chief Complaint: Headache Stated Complaint: Migraine Time Seen by Provider: 06/11/22 02:11 Source: RN notes reviewed, old records reviewed Mode of arrival: EMS Limitations: no limitations - History of Present Illness Initial Comments: This is a 36-year-old female presented with headache. Patient in accordance with her headache is admitted multiple recent syncopal events that some of been severe up to 2 hours. Patient has no chest pain aside from a headache no other complaints. No abdominal pain no nausea vomiting. But also recurrent evaluations of syncope. Patient does have migraine headaches but is not presents to the ER for migraine treatment in the past. No fevers. No trauma MD Complaint: headache, other (Syncopal events multiple in the last 2 weeks) -: week(s) Onset Description: gradual Location: right, left, temporal Severity: moderate Severity scale (1-10): 5 Quality: throbbing Consistency: constant, now resolved Improves With: nothing Worsens With: none Associated Symptoms: nausea Other Symptoms: other (Multiple syncopal events) Treatments Prior to Arrival: none - Related Data Home Medications Medication Instructions Recorded Confirmed FLUoxetine HCL [PROzac] 20 mg PO DAILY 09/10/20 09/10/20 Allergies Allergy/AdvReac Type Severity Reaction Status Date / Time bee venom protein (honey bee) Allergy Anaphylaxis Verified 06/11/22 00:04 Review of Systems ROS Statement: Those systems with pertinent positive or pertinent negative responses have been documented in the HPI. ROS Other: All systems not noted in ROS Statement are negative. Past Medical History Past Medical History: No Reported History History of Any Multi-Drug Resistant Organisms: None Reported Additional Past Surgical History / Comment(s): right foot Past Anesthesia/Blood Transfusion Reactions: No Reported Reaction Past Psychological History: Depression Smoking Status: Current every day smoker Past Alcohol Use History: None Reported Past Drug Use History: None Reported General Exam Limitations: no limitations General appearance: alert, in no apparent distress Head exam: Present: atraumatic, normocephalic, normal inspection Eye exam: Present: normal appearance, PERRL, EOMI. Absent: scleral icterus, conjunctival injection, periorbital swelling ENT exam: Present: normal exam, mucous membranes moist Neck exam: Present: normal inspection. Absent: tenderness, meningismus, lymphad enopathy Respiratory exam: Present: normal lung sounds bilaterally. Absent: respiratory distress, wheezes, rales, rhonchi, stridor Cardiovascular Exam: Present: regular rate, normal rhythm, normal heart sounds. Absent: systolic murmur, diastolic murmur, rubs, gallop, clicks GI/Abdominal exam: Present: soft, normal bowel sounds. Absent: distended, tenderness, guarding, rebound, rigid Extremities exam: Present: normal inspection, full ROM, normal capillary refill. Absent: tenderness, pedal edema, joint swelling, calf tenderness Back exam: Present: normal inspection Neurological exam: Present: alert, oriented X3, CN II-XII intact Psychiatric exam: Present: normal affect, normal mood Skin exam: Present: warm, dry, intact, normal color. Absent: rash Course Vital Signs 06/10/22 06/11/22 23:59 00:04 Temperature 97.8 F 97.6 F Pulse Rate 67 91 Respiratory 22 16 Rate Blood Pressure 112/74 112/72 O2 Sat by Pulse 98 98 Oximetry - Reevaluation(s) Reevaluation #1: 06/11/22 04:01 Attic record is reviewed Reevaluation #2: 06/11/22 04:01 Patient's headache is improved no syncope here in the ER Reevaluation #3: 06/11/22 04:01 Patient informed results and questions answered - Consultations Consultation #1: Spoke with [facility] who will admit this patient Medical Decision Making - Medical Decision Making 36 female DF for evaluation. Patient presents today for evaluation of headache as well as multiple episodes of recurrent syncope wearing the family. Patient be admitted for evaluation of syncopal cause, headache is improved CT brain is negative - Lab Data Result diagrams: 06/11/22 02:50 06/11/22 02:50 Lab Results 06/11/22 06/11/22 06/11/22 Range/Units 02:50 02:50 02:50 WBC 10.9 H (3.8-10.6) k/uL RBC 4.52 (3.80-5.40) m/uL Hgb 13.5 (11.4-16.0) gm/dL Hct 42.0 (34.0-46.0) % MCV 92.8 (80.0-100.0) fL MCH 29.8 (25.0-35.0) pg MCHC 32.1 (31.0-37.0) g/dL RDW 15.8 H (11.5-15.5) % Plt Count 303 (150-450) k/uL MPV 9.2 Neutrophils % 73 % Lymphocytes % 18 % Monocytes % 6 % Eosinophils % 2 % Basophils % 0 % Neutrophils # 8.0 H (1.3-7.7) k/uL Lymphocytes # 1.9 (1.0-4.8) k/uL Monocytes # 0.7 (0-1.0) k/uL Eosinophils # 0.2 (0-0.7) k/uL Basophils # 0.0 (0-0.2) k/uL PT 10.2 (9.0-12.0) sec INR 0.9 (<1.2) APTT 22.2 (22.0-30.0) sec D-Dimer 0.60 H (<0.60) mg/L FEU Sodium 139 (137-145) mmol/L Potassium 3.7 (3.5-5.1) mmol/L Chloride 105 (98-107) mmol/L Carbon Dioxide 23 (22-30) mmol/L Anion Gap 11 mmol/L BUN 5 L (7-17) mg/dL Creatinine 0.55 (0.52-1.04) mg/dL Est GFR (CKD-EPI)AfAm >90 (>60 ml/min/1.73 sqM) Est GFR (CKD-EPI)NonAf >90 (>60 ml/min/1.73 sqM) Glucose 129 H (74-99) mg/dL Calcium 9.6 (8.4-10.2) mg/dL Magnesium 2.0 (1.6-2.3) mg/dL Total Bilirubin 0.2 (0.2-1.3) mg/dL AST 23 (14-36) U/L ALT 19 (4-34) U/L Alkaline Phosphatase 127 H (38-126) U/L Troponin I (0.000-0.034) ng/mL Total Protein 7.1 (6.3-8.2) g/dL Albumin 4.1 (3.5-5.0) g/dL Salicylates <1.0 mg/dL Acetaminophen <10.0 ug/mL 06/11/22 Range/Units 02:50 WBC (3.8-10.6) k/uL RBC (3.80-5.40) m/uL Hgb (11.4-16.0) gm/dL Hct (34.0-46.0) % MCV (80.0-100.0) fL MCH (25.0-35.0) pg MCHC (31.0-37.0) g/dL RDW (11.5-15.5) % Plt Count (150-450) k/uL MPV Neutrophils % % Lymphocytes % % Monocytes % % Eosinophils % % Basophils % % Neutrophils # (1.3-7.7) k/uL Lymphocytes # (1.0-4.8) k/uL Monocytes # (0-1.0) k/uL Eosinophils # (0-0.7) k/uL Basophils # (0-0.2) k/uL PT (9.0-12.0) sec INR (<1.2) APTT (22.0-30.0) sec D-Dimer (<0.60) mg/L FEU Sodium (137-145) mmol/L Potassium (3.5-5.1) mmol/L Chloride (98-107) mmol/L Carbon Dioxide (22-30) mmol/L Anion Gap mmol/L BUN (7-17) mg/dL Creatinine (0.52-1.04) mg/dL Est GFR (CKD-EPI)AfAm (>60 ml/min/1.73 sqM) Est GFR (CKD-EPI)NonAf (>60 ml/min/1.73 sqM) Glucose (74-99) mg/dL Calcium (8.4-10.2) mg/dL Magnesium (1.6-2.3) mg/dL Total Bilirubin (0.2-1.3) mg/dL AST (14-36) U/L ALT (4-34) U/L Alkaline Phosphatase (38-126) U/L Troponin I <0.012 (0.000-0.034) ng/mL Total Protein (6.3-8.2) g/dL Albumin (3.5-5.0) g/dL Salicylates mg/dL Acetaminophen ug/mL - EKG Data -: EKG Interpreted by Me (EKG sinus 72 PA 147 QRS 97 QTc 4:15) - Radiology Data Radiology results: report reviewed (CT brain CT chest negative for acute disease), image reviewed Disposition Clinical Impression: Migraine headache, Recurrent syncope Disposition: ADMITTED IP TO THIS [facility] Condition: Good Is patient prescribed a controlled substance at d/c from ED?: No Referrals: Darlin Ashraf DO [Primary Care Provider] - 1-2 days
--- NOTE | 2022-06-11 02:57 | CT ---
EXAMINATION TYPE: CT brain wo con DATE OF EXAM: 06/11/2022 COMPARISON: None HISTORY: Syncope/BUCHANAN CT DLP: 1147.4 mGycm Automated exposure control for dose reduction was used. Images of the brain obtained with no contrast. Ventricles have normal size. There is no mass effect nor midline shift. No sign of intracranial hemor rhage. The calvarium is intact. There is normal aeration of the mastoid sinuses. There is mucosal thickening left maxillary sinus. IMPRESSION: Negative CT scan of the brain. Small mucous retention cyst left maxillary sinus.
[2022-06-11 03:18] LABS: Basophils % (A) 0 %; Eosinophils # (A) 0.2 k/uL (0-0.7); Eosinophils % (A) 2 %; HGB 13.5 gm/dL (11.4-16.0); Lymphocytes # (A) 1.9 k/uL (1.0-4.8); Lymphocytes % (A) 18 %; MCH 29.8 pg (25.0-35.0); MCHC 32.1 g/dL (31.0-37.0); MCV 92.8 fL (80.0-100.0); Mean Platelet Volume 9.2; Monocytes # (A) 0.7 k/uL (0-1.0); Monocytes % (A) 6 %; Neutrophils % (A) 73 %; Platelet Count 303 k/uL (150-450); RBC 4.52 m/uL (3.80-5.40); RDW 15.8 % (11.5-15.5); WBC 10.9 k/uL (3.8-10.6)
[2022-06-11 03:28] LABS: ALT 19 U/L (4-34); AST 23 U/L (14-36); Acetaminophen <10.0 ug/mL; African American GFR (CKD) >90 (>60 ml/min/1.73 sqM); Albumin 4.1 g/dL (3.5-5.0); Alkaline Phosphatase 127 U/L (38-126); Anion Gap 11 mmol/L; Blood Urea Nitrogen 5 mg/dL (7-17); Calcium 9.6 mg/dL (8.4-10.2); Carbon Dioxide 23 mmol/L (22-30); Chloride 105 mmol/L (98-107); Glucose 129 mg/dL (74-99); Non-African American GFR(CKD) >90 (>60 ml/min/1.73 sqM); Potassium 3.7 mmol/L (3.5-5.1); Salicylate <1.0 mg/dL; Sodium 139 mmol/L (137-145); Total Bilirubin 0.2 mg/dL (0.2-1.3); Total Protein 7.1 g/dL (6.3-8.2)
[2022-06-11 03:31] LABS: INR 0.9 (<1.2); Partial Thromboplastin Time 22.2 sec (22.0-30.0); Prothrombin Time 10.2 sec (9.0-12.0)
[2022-06-11] MEDS ORDERED: NALOXONE 0.4 MG/ML 1 ML VIAL IV PRN (03:58)
[2022-06-11] MEDS ORDERED: MORPHINE SULFATE 4 MG/ML SYRINGE IV PRN (03:58)
[2022-06-11] MEDS ORDERED: ONDANSETRON 4 MG/2 ML VIAL IVP PRN (03:58)
[2022-06-11] MEDS: SODIUM CHLORIDE 0.9% 1,000 ML IV SCH ×3 (04:06→21:36)
--- NOTE | 2022-06-11 05:23 | CT ---
EXAMINATION TYPE: CT angio chest DATE OF EXAM: 06/11/2022 COMPARISON: None HISTORY: Syncope elevated ddimer CT DLP: 856.3 mGycm Automated exposure control for dose reduction was used. CONTRAST: Performed with IV Contrast, patient injected with 80 mL of Isovue 370. There are Three-D postprocessed images. There is no mediastinal adenopathy. There are no hilar masses. Thoracic aorta is intact. No aneurysm or dissection. Heart size is fairly normal. No pericardial effusion. There is no evidence of filling defect in the pulmonary arteries. There is normal contrast opacificat ion of the pulmonary arteries. There is some mild interstitial infiltrates and subsegmental atelectasis in the posterior lung nelson . No pleural effusion. The thoracic spine is intact. No compression fracture. Sternum is intact. IMPRESSION: No evidence of pulmonary embolism. Mild interstitial infiltrates in atelectasis in the posterior lung nelson. No suspicious pulmonary ma ss.
[2022-06-11 07:53] LABS: Appearance,Urine Clear (Clear); Bacteria,Urine Occasional /hpf; Bilirubin,Urine Negative (Negative); Blood,Urine Large (Negative); Color,Urine Light Yellow; Glucose,Urine (UA) Negative (Negative); Ketones,Urine Negative (Negative); Leukocyte Esterase,Urine Small (Negative); Nitrite,Urine Negative (Negative); PH, Urine 7.5 (5.0-8.0); Protein,Urine Negative (Negative); RBC,Urine 17 /hpf (0-5); Specific Gravity,Urine 1.036 (1.001-1.035); Squamous Epithelial Cell,Urine 2 /hpf (0-4); Urobilinogen,Urine <2.0 mg/dL (<2.0); WBC,Urine 6 /hpf (0-5)
[2022-06-11 07:56] LABS: Amphetamine Screen,Urine Not Detected (NotDetected); Barbiturate Screen,Urine Not Detected (NotDetected); Benzodiazepines Screen,Urine Not Detected (NotDetected); Cocaine Screen,Urine Not Detected (NotDetected); Methadone Screen, Urine Not Detected (NotDetected); Opiate Screen,Urine Not Detected (NotDetected); Oxycodone Screen, Urine Not Detected (NotDetected); Phencyclidine Screen,Urine Not Detected (NotDetected); Tricyclic Antidepressant,Urine Not Detected (NotDetected); Urn Cannabinoid Scrn Not Detected (NotDetected)
--- NOTE | 2022-06-11 11:08 | P.CRDCN ---
History of Present Illness History of present illness: HISTORY OF PRESENTING ILLNESS Patient is a pleasant 36-year-old female with history of depression, migraine headaches, tobacco abuse, family history of father with pacemaker who presents with multiple syncopal episodes. She states all these have occurred when she is standing and usually she will get somewhat lightheaded and then has passed out a few times. Normally this is preceded by a migraine headache however denies any abnormal medications and only takes Tylenol and Motrin. Her headaches have been somewhat increasing. She denies any chest pain or pressure. Mild dyspnea which is chronic related to tobacco abuse. No recent fevers or chills. She was noted to have mildly elevated d-dimer and therefore CT PE protocol was performed which showed no PE. There is mild leukocytosis, normal kidney function, mildly elevated urine white blood cell 6. EKG shows sinus rhythm, normal axis, no significant ST or T-wave abnormalities. Troponin normal 1. REVIEW OF SYSTEMS At the time of my exam: CONSTITUTIONAL: Denies fever or chills. +BUCHANAN CARDIOVASCULAR: Denies chest pain, shortness of breath, orthopnea, PND or palpitations. RESPIRATORY: Denies cough. GASTROINTESTINAL: Denies abdominal pain, diarrhea, constipation, nausea or vomiting. MUSCULOSKELETAL: Denies myalgias. NEUROLOGIC: Denies numbness, tingling or weakness. ENDOCRINE: Denies fatigue, weight change, polydipsia or polyurina. GENITOURINARY: Denies burning, hematuria or urgency with micturation. HEMATOLOGIC: Denies history of anemia or bleeding. PHYSICAL EXAMINATION Vital signs reviewed. CONSTITUTIONAL: No apparent distress. HEENT: Head is normocephalic. Pupils are equal, round. Sclerae anicteric. Mucous membranes of the mouth are moist. No JVD. No carotid bruit. CHEST EXAMINATION: Lungs are clear to auscultation. No chest wall tenderness is noted on palpation or with deep breathing. HEART EXAMINATION: Regular rate and rhythm. S1, S2 heard. No murmurs, gallops or rub. ABDOMEN: Soft, nontender. Positive bowel sounds. EXTREMITIES: 2+ peripheral pulses, no lower extremity edema and no calf tendern ess. NEUROLOGIC EXAMINATION: Patient is awake, alert and oriented x3. ASSESSMENT 1. Syncope 3 preceded by lightheadedness and always occurring with standing. Usually exacerbated by migraine headache 2. Migraine headaches 3. Tobacco abuse 4. Mild leukocytosis PLAN No clear etiology of her syncope. Most of her symptoms have been preceded by migraine headache and feeling lightheaded. We will check orthostatic vitals. Most of her symptoms occur when standing. Discussed if she starts feeling lightheaded to sit down. Discussed staying well hydrated and eating frequently throughout the day. Check repeat troponin for completeness sake. No signs or symptoms consistent with acute coronary syndrome. Check 2-D echo and if unrevealing patient may be discharged home from a cardiology standpoint 2 week event monitor. Past Medical History Past Medical History: No Reported History History of Any Multi-Drug Resistant Organisms: None Reported Additional Past Surgical History / Comment(s): right foot Past Anesthesia/Blood Transfusion Reactions: No Reported Reaction Past Psychological History: Depression Smoking Status: Current every day smoker Past Alcohol Use History: None Reported Past Drug Use History: None Reported Medications and Allergies Home Medications Medication Instructions Recorded Confirmed Type FLUoxetine HCL [PROzac] 20 mg PO DAILY 09/10/20 09/10/20 History Allergies Allergy/AdvReac Type Severity Reaction Status Date / Time bee venom protein (honey bee) Allergy Anaphylaxis Verified 06/11/22 00:04 Physical Exam Vitals: Vital Signs Temp Pulse Pulse Resp BP BP Pulse Ox 06/11/22 08:15 98.6 F 73 18 97/51 97 06/11/22 07:13 98 06/11/22 06:56 97.2 F L 74 18 111/69 98 06/11/22 04:00 98.0 F 65 15 104/51 98 06/11/22 00:04 97.6 F 91 16 112/72 98 06/10/22 23:59 97.8 F 67 22 112/74 98 Intake and Output 06/10/22 06/11/22 06/11/22 22:59 06:59 14:59 Other: Voiding Method Toilet Weight 90.718 kg 90.718 kg Results 06/11/22 02:50 06/11/22 02:50 Cardiac Enzymes 06/11/22 06/11/22 Range/Units 02:50 02:50 AST 23 (14-36) U/L Troponin I <0.012 (0.000-0.034) ng/mL Coagulation 06/11/22 Range/Units 02:50 PT 10.2 (9.0-12.0) sec APTT 22.2 (22.0-30.0) sec CBC 06/11/22 Range/Units 02:50 WBC 10.9 H (3.8-10.6) k/uL RBC 4.52 (3.80-5.40) m/uL Hgb 13.5 (11.4-16.0) gm/dL Hct 42.0 (34.0-46.0) % Plt Count 303 (150-450) k/uL Comprehensive Metabolic Panel 06/11/22 Range/Units 02:50 Sodium 139 (137-145) mmol/L Potassium 3.7 (3.5-5.1) mmol/L Chloride 105 (98-107) mmol/L Carbon Dioxide 23 (22-30) mmol/L BUN 5 L (7-17) mg/dL Creatinine 0.55 (0.52-1.04) mg/dL Glucose 129 H (74-99) mg/dL Calcium 9.6 (8.4-10.2) mg/dL AST 23 (14-36) U/L ALT 19 (4-34) U/L Alkaline Phosphatase 127 H (38-126) U/L Total Protein 7.1 (6.3-8.2) g/dL Albumin 4.1 (3.5-5.0) g/dL Current Medications Generic Name Dose Route Start Last Admin Trade Name Freq PRN Reason Stop Dose Admin Sodium Chloride 1,000 mls @ 130 mls/hr 06/11/22 04:00 06/11/22 04:06 Saline 0.9% IV 130 mls/hr .[id number] BETZY Administration Morphine Sulfate 4 mg 06/11/22 03:58 Morphine Sulfate 4 Mg/Ml Syringe IV Q4HR PRN Severe Pain (Scale 7 to 10) Naloxone HCl 0.2 mg 06/11/22 03:58 Naloxone 0.4 Mg/Ml 1 Ml Vial IV Q2M PRN Opioid Reversal Ondansetron HCl 4 mg 06/11/22 03:58 Ondansetron 4 Mg/2 Ml Vial IVP Q8HR PRN Nausea And Vomiting Intake and Output 06/10/22 06/11/22 06/11/22 22:59 06:59 14:59 Other: Voiding Method Toilet Weight 90.718 kg 90.718 kg Patient Weight 06/12/22 06:59 Weight 90.718 kg 06/11/22 02:50 06/11/22 02:50
--- NOTE | 2022-06-11 12:47 | CA ---
Transthoracic Echo Report Name: Airam James Age: 36 Gender: F : 1985 Exam Date: 06/11/2022 11:58 Exam Location: [place] [facility] Ht (in): 67 Wt (lb): 200 Ordering Physician: Cam Tyalor DO ([email or web address]) Attending/Referring Phys: Semi Automatic Sewing Machine Operator Tyesha Lerner RDCS Procedure CPT: Indications: re: Syncope Cardiac Hx: Technical Quality: Good Contrast 1: Total Dose (mL): Contrast 2: Total Dose (mL): MEASUREMENTS (Male / Female) Normal Values 2D ECHO LV Diastolic Diameter PLAX 4.9 cm 4.2 - 5.9 / 3.9 - 5.3 cm LV Systolic Diameter PLAX 3.3 cm IVS Diastolic Thickness 0.6 cm 0.6 - 1.0 / 0.6 - 0.9 cm LVPW Diastolic Thickness 0.7 cm 0.6 - 1.0 / 0.6 - 0.9 cm LV Relative Wall Thickness 0.3 RV Internal Dim ED PLAX 2.8 cm LA Volume 26.1 cm??? 18 - 58 / 22 - 52 cm??? M-MODE Aortic Root Diameter MM 2.8 cm LA Systolic Diameter MM 3.2 cm LA Ao Ratio MM 1.1 MV E Point Septal Separation 1.2 cm AV Cusp Separation MM 1.8 cm DOPPLER AV Peak Velocity 112.0 cm/s AV Peak Gradient 5.0 mmHg MV Area PHT 3.5 cm??? MR Peak Velocity 123.3 cm/s MR Peak Gradient 6.1 mmHg Mitral E Point Velocity 112.5 cm/s Mitral A Point Velocity 54.8 cm/s Mitral E to A Ratio 2.1 MV Deceleration Time 215.6 ms MV E' Velocity 14.8 cm/s Mitral E to MV E' Ratio 7.6 TR Peak Velocity 146.5 cm/s TR Peak Gradient 8.6 mmHg Right Ventricular Systolic Press 13.6 mmHg FINDINGS Left Ventricle Normal Left ventricular size, wall thickness, systolic function with no obvious regional wall motion abnormalities. Normal Left ventricular diastolic filling pattern. Left ventricular ejection fraction is estimated at 55-60%. Right Ventricle The right ventricle is normal in size and function. Right Atrium The right atrium is normal in size. Left Atrium The left atrium is normal in size. Mitral Valve Structurally normal mitral valve without significant stenosis or prolapse. There is mild mitral regurgitation. Aortic Valve Structurally normal aortic valve without significant sclerosis or stenosis. There is no aortic regurgitation. Tricuspid Valve Structurally normal tricuspid valve without significant stenosis. Pulmonary artery systolic pressure is normal. Mild tricuspid regurgitation. Pulmonic Valve Structurally normal pulmonic valve without significant stenosis. There is no pulmonic regurgitation. Pericardium Normal pericardium without effusion. Aorta Normal aortic root dimension. CONCLUSIONS Normal left ventricular wall thickness Normal left ventricular EF 55-60% Mild mitral regurgitation Mild tricuspid regurgitation No pericardial effusion Previewed by: Dr. Cam Taylor DO (Electronically Signed) Final Date: 11 June 2022 12:46
--- NOTE | 2022-06-12 02:02 | P.HPIM ---
History of Present Illness H&P Date: 06/11/22 Chief Complaint: Headache Patient is a 36-year-old female with known history of depression, migraine headaches and currently everyday smoker presents to ER with complaints of headache and multiple recent syncopal episode. Patient had a severe headache last night and came to ER. Otherwise denies any complaints of chest pain or shortness of breath. Mainly frontal headache. Patient is also complaining of dizziness when she gets up from the bed. Presents with nausea and episodes of vomiting. Patient was given a dose of Compazine, Benadryl and Toradol in the ER which seemed to improve her migraine headaches. Otherwise patient denies any fever or chills. No neck stiffness. No cough or sputum production. Patient states that he follows with her primary care physician for migraine headaches. Patient did have a legal guardian previously and family is currently taking care of her. CT head showed small mucous retention cyst left maxillary sinus. Negative CT CTA chest showed no evidence of PE. Mild interstitial infiltrates and atelectasis in the posterior lung nelson. EKG showed sinus rhythm with sinus arrhythmia. Review of Systems Constitutional: Patient denies any fever or chills . no Generalized weakness. Abdomen: Patient denied any nausea or vomiting or abd. pain Cardiovascular: Patient denies any chest pain or short of breath no palpitations. Respiratory: patient denied any cough is from production. No shortness of estelle ath Neurologic: Patient denied any numbness or tingling. + headache. Musculoskeletal: Patient denies any complaints of joint swelling or deformity. Skin: Negative Psychiatric: Negative Endocrine: No heat or cold intolerance. No recent weight gain. Genitourinary: No dysuria or hematuria. All other 14 point ROS negative except the above Past Medical History Past Medical History: No Reported History History of Any Multi-Drug Resistant Organisms: None Reported Additional Past Surgical History / Comment(s): right foot Past Anesthesia/Blood Transfusion Reactions: No Reported Reaction Past Psychological History: Depression Smoking Status: Current every day smoker Past Alcohol Use History: None Reported Past Drug Use History: None Reported Medications and Allergies Home Medications Medication Instructions Recorded Confirmed Type buPROPion XL [Wellbutrin XL] 450 mg PO DAILY 06/11/22 06/11/22 History Allergies Allergy/AdvReac Type Severity Reaction Status Date / Time bee venom protein (honey bee) Allergy Anaphylaxis Verified 06/11/22 13:09 Physical Exam Vitals: Vital Signs Temp Pulse Pulse Resp BP BP Pulse Ox 06/11/22 08:15 98.6 F 73 18 97/51 97 06/11/22 07:13 98 06/11/22 06:56 97.2 F L 74 18 111/69 98 06/11/22 04:00 98.0 F 65 15 104/51 98 06/11/22 00:04 97.6 F 91 16 112/72 98 06/10/22 23:59 97.8 F 67 22 112/74 98 Intake and Output 06/10/22 06/11/22 06/11/22 22:59 06:59 14:59 Other: Voiding Method Toilet Weight 90.718 kg 90.718 kg PHYSICAL EXAMINATION: Patient is lying in the bed comfortably, no acute distress, awake alert and oriented.. HEENT: Normocephalic. Neck is supple. Pupils reactive. Nostrils clear. Oral cav ity is moist. Neck reveals no JVD, carotid bruits, or thyromegaly. CHEST EXAMINATION: Trachea is central. Symmetrical expansion. Lung nelson clear to auscultation and percussion. CARDIAC: Normal S1, S2 with no gallops. No murmurs ABDOMEN: Soft. Bowel sounds present. Nontender. No organomegaly. No abdominal bruits. Extremities: reveal no edema. No clubbing or cyanosis Neurologically awake, alert, oriented x3 with well-coordinated movements. No focal deficits noted Skin: No rash or skin lesions. Psychiatric: Coperative. Nonsuicidal, Musculoskeletal: No joint swelling or deformity. Normal range of motion. Results CBC & Chem 7: 06/11/22 02:50 06/11/22 02:50 Labs: Abnormal Lab Results - Last 24 Hours (Table) 06/11/22 06/11/22 06/11/22 Range/Units 02:50 02:50 02:50 WBC 10.9 H (3.8-10.6) k/uL RDW 15.8 H (11.5-15.5) % Neutrophils # 8.0 H (1.3-7.7) k/uL D-Dimer 0.60 H (<0.60) mg/L FEU BUN 5 L (7-17) mg/dL Glucose 129 H (74-99) mg/dL Alkaline Phosphatase 127 H (38-126) U/L Ur Specific [place] (1.001-1.035) Urine Blood (Negative) Ur Leukocyte Esterase (Negative) Urine RBC (0-5) /hpf Urine WBC (0-5) /hpf Urine Bacteria (None) /hpf 06/11/22 Range/Units 07:28 WBC (3.8-10.6) k/uL RDW (11.5-15.5) % Neutrophils # (1.3-7.7) k/uL D-Dimer (<0.60) mg/L FEU BUN (7-17) mg/dL Glucose (74-99) mg/dL Alkaline Phosphatase (38-126) U/L Ur Specific [place] 1.036 H (1.001-1.035) Urine Blood Large H (Negative) Ur Leukocyte Esterase Small H (Negative) Urine RBC 17 H (0-5) /hpf Urine WBC 6 H (0-5) /hpf Urine Bacteria Occasional H (None) /hpf Thrombosis Risk Factor Assmnt - DVT/VTE Prophylaxis DVT/VTE Prophylaxis: Pharmacologic Prophylaxis ordered - Choose All That Apply Each Factor Represents 1 point: Obesity (BMI >25) Other Risk Factors: No Other congenital or acquired thrombophilia - If yes, enter type in comment: No Thrombosis Risk Factor Assessment Total Risk Factor Score: 1 Thrombosis Risk Factor Assessment Level: Low Risk Assessment and Plan Assessment: Multiple syncopal episodes likely related to migraine headache and possible orthostatic hypotension. Acute migraine headache Ongoing anticoagulation Depression DVT prophylaxis with heparin subcu Plan: Patient will be continued on telemetry monitoring. Patient is also complaining of dizziness when she gets out of bed. Orthostatic vitals were ordered. Continue with Zofran for nausea and pain control. Cardiology was consulted due to multiple syncopal episodes. 2D echocardiogram and carotid duplex was ordered. Continue to follow closely. Time with Patient: Greater than 30
[2022-06-12] MEDS: SODIUM CHLORIDE 0.9% 1,000 ML IV SCH ×2 (05:28→08:18)
[2022-06-12 08:00] VITALS: RESP 18
[2022-06-12] MEDS: BUTALB/APAP/CAFF 50-325-40MG TAB PO PRN ×2 (08:16→15:20)
[2022-06-12] MEDS: HEPARIN SODIUM,PORCINE/PF 5,000 UNIT/0.5 ML SYRINGE SQ SCH ×2 (08:17→15:20)
[2022-06-12] MEDS ORDERED: FAMOTIDINE 20 MG TAB PO SCH (09:00)
[2022-06-12] MEDS ORDERED: buPROPion XL 150 MG TAB.ER.24H PO SCH (09:00)
[2022-06-12 09:06] LABS: Basophils # (A) 0.03 X 10*3/uL (0.00-0.10); Basophils % (A) 0.3 %; Eosinophils # (A) 0.13 X 10*3/uL (0.04-0.35); Eosinophils % (A) 1.3 %; Immature Grans, Automated 0.2 %; Lymphocytes # (A) 1.79 X 10*3/uL (0.90-5.00); Lymphocytes % (A) 18.2 %; MCH 28.4 pg (27.0-32.0); MCHC 30.8 g/dL (32.0-37.0); MCV 92.4 fL (80.0-97.0); Mean Platelet Volume 11.5 fL (9.5-12.2); Monocytes # (A) 0.63 X 10*3/uL (0.20-1.00); Monocytes % (A) 6.4 %; NRBC Per 100 WBC 0 /100 WBCS (0.0-0.0); Neutrophils # (A) 7.22 X 10*3/uL (1.80-7.70); Neutrophils % (A) 73.6 %; Platelet Count 272 X 10*3/uL (140-440); RBC 4.22 X 10*6/uL (4.10-5.20); RDW 16.2 % (11.5-14.5); WBC 9.82 X 10*3/uL (4.50-10.00)
[2022-06-12 09:15] LABS: ALT 15 U/L (8-44); AST 13 U/L (13-35); African American GFR (CKD) 135.9 (60.0-200.0); Albumin 3.6 g/dL (3.8-4.9); Albumin/Globulin Ratio 1.44 (1.60-3.17); Alkaline Phosphatase 116 U/L (41-126); Blood Urea Nitrogen 5.1 mg/dL (9.0-27.0); Calcium 8.7 mg/dL (8.7-10.3); Chloride 108 mmol/L (96-109); Globulin 2.5 g/dL (1.6-3.3); Glucose 99 mg/dL (70-110); Magnesium 2.2 mg/dL (1.5-2.4); Non-African American GFR(CKD) 117.3 (60.0-200.0); Phosphorus 2.7 mg/dL (2.4-5.1); Potassium 4.1 mmol/L (3.5-5.5); Sodium 140 mmol/L (135-145); Total Bilirubin <0.15 mg/dL (0.30-1.20); Total Protein 6.1 g/dL (6.2-8.2)
--- NOTE | 2022-06-12 10:56 | P.PN ---
Subjective HISTORY OF PRESENTING ILLNESS Patient is a pleasant 36-year-old female with history of depression, migraine headaches, tobacco abuse, family history of father with pacemaker who presents with multiple syncopal episodes. She states all these have occurred when she is standing and usually she will get somewhat lightheaded and then has passed out a few times. Normally this is preceded by a migraine headache however denies any abnormal medications and only takes Tylenol and Motrin. Her headaches have been somewhat increasing. She denies any chest pain or pressure. Mild dyspnea which is chronic related to tobacco abuse. No recent fevers or chills. She was noted to have mildly elevated d-dimer and therefore CT PE protocol was performed which showed no PE. There is mild leukocytosis, normal kidney function, mildly elevated urine white blood cell 6. EKG shows sinus rhythm, normal axis, no significant ST or T-wave abnormalities. Troponin normal 1. 06/12 Patient seen and examined. Patient denies any further lightheadedness. Telem etry reviewed with normal sinus rhythm. No significant arrhythmias. Echocardiogram performed with preserved EF without significant valvular disease. Her headache has improved with Fioricet PHYSICAL EXAMINATION Vital signs reviewed. CONSTITUTIONAL: No apparent distress. HEENT: Head is normocephalic. Pupils are equal, round. Sclerae anicteric. Mucous membranes of the mouth are moist. No JVD. No carotid bruit. CHEST EXAMINATION: Lungs are clear to auscultation. No chest wall tenderness is noted on palpation or with deep breathing. HEART EXAMINATION: Regular rate and rhythm. S1, S2 heard. No murmurs, gallops or rub. ABDOMEN: Soft, nontender. Positive bowel sounds. EXTREMITIES: 2+ peripheral pulses, no lower extremity edema and no calf tenderness. NEUROLOGIC EXAMINATION: Patient is awake, alert and oriented x3. ASSESSMENT 1. Syncope 3 preceded by lightheadedness and always occurring with standing. Usually exacerbated by migraine headache 2. Migraine headaches 3. Tobacco abuse 4. Mild leukocytosis PLAN Cardiogram reviewed without significant valvular disease and normal left ventricular function. No significant arrhythmias noted on telemetry. Patient feeling better. Patient stable for discharge home from a cardiology standpoint with outpatient follow-up and we will set up an event monitor in the office. Objective - Vital Signs Vital signs: Vital Signs Temp 97.7 F 06/12/22 07:20 Pulse 72 06/12/22 07:20 Resp 18 06/12/22 07:20 BP 109/67 06/12/22 07:20 Pulse Ox 97 06/12/22 07:20 FiO2 Intake & Output 06/11/22 06/12/22 06/12/22 18:59 06:59 18:59 Intake Total 480 Balance 480 Weight 90.718 kg Intake: Oral 480 Other: Voiding Method Toilet Toilet # Voids 2 2 # Bowel Movements 1 1 - Labs CBC & Chem 7: 06/12/22 05:04 06/12/22 05:04 Labs: Abnormal Lab Results - Last 24 Hours (Table) 06/12/22 06/12/22 Range/Units 05:04 05:04 MCHC 30.8 L (32.0-37.0) g/dL RDW 16.2 H (11.5-14.5) % Anion Gap 7.00 L (10.00-18.00) mmol/L BUN 5.1 L (9.0-27.0) mg/dL BUN/Creatinine Ratio 8.50 L (12.00-20.00) Ratio Total Bilirubin <0.15 L (0.30-1.20) mg/dL Total Protein 6.1 L (6.2-8.2) g/dL Albumin 3.6 L (3.8-4.9) g/dL Albumin/Globulin Ratio 1.44 L (1.60-3.17) g/dL
[2022-06-12 15:25] VITALS: BP 114/61; PULSE 69; TEMP 98.3
== END 2022-06-12 17:00 | disposition home or self-care (01) ==
LOC: EEVIPCON 23:01 → EC 23:01 → 6NMEDSUR 06-11 03:59
PROVIDERS: ADMIT Hospitalist; ATTEND Hospitalist
DX: G43.909 Migraine, unspecified, not intractable, without status migrainosus (principal); R55 Syncope and collapse; R42 Dizziness and giddiness; R79.89 Other specified abnormal findings of blood chemistry; D72.829 Elevated white blood cell count, unspecified; R91.8 Other nonspecific abnormal finding of lung field; J98.11 Atelectasis; I49.8 Other specified cardiac arrhythmias; F32.A Depression, unspecified; F17.200 Nicotine dependence, unspecified, uncomplicated; J34.1 Cyst and mucocele of nose and nasal sinus; Z79.899 Other long term (current) drug therapy; Z91.030 Bee allergy status; Z82.49 Family history of ischemic heart disease and other diseases of the circulatory system
CPT/HCPCS: 96376; 96361 ×3; 96372; 96374; 96375; 99285; 36415; 94760; 93005; 93306; 85379; 80053 ×2; 83735 ×2; 84100; 84484; 85025 ×2; 85610; 85730; 81001; 80306; 80143; 80179; 70450; 71275; G0378 ×2; J1200; J0780; J1885; Q9967; J1644